=== PATIENT | female | born 1955 | race Caucasian/White ===

== ENCOUNTER 2024-11-28 09:54 | Outpatient (CLI) | payer MEDICARE, BC, SELFPAY ==
--- NOTE | 2024-11-28 10:15 | CRLHL7_ITS ---
For Patients: As a result of the Century Cures Act, medical imaging exams and procedure reports are released immediately into your electronic medical record. You may view this report before your referring provider. If you have questions, please contact your health care provider. ULTRASOUND-GUIDED LEFT BREAST BIOPSY AND POST-BIOPSY DIGITAL MAMMOGRAM FOR BIOPSY MARKER PLACEMENT CLINICAL HISTORY: Solid suspicious mass. COMPARISON STUDIES: 11/17/2024. TECHNIQUE: Real-time ultrasound with image documentation was used for targeting the breast lesion. Core biopsy specimens were obtained using an automated gun with a 16 gauge biopsy needle. Post-biopsy CC and ML digital mammograms were obtained to document position of the biopsy marker. CONSENT and TIME OUT: The procedure, risks, and alternatives were explained to the patient and a consent was signed. [place] Protocol was followed including pre-procedure verification that relevant information/documentation was available, reviewed and properly matched to the patient; consent accurate and complete; and equipment and supplies available. Time Out was conducted just prior to starting procedure to verify the four required elements: patient identity, correct side/site marked (if applicable), procedure, relevant images/results properly labeled and displayed (if applicable). PROCEDURE: The patient was positioned supine on the ultrasound table. The breast was prepped with ChloraPrep. 8 cc of 1 percent lidocaine used for local anesthesia. Core samples were obtained. A sterile metal biopsy clip was placed percutaneously to leticia the lesion position within the breast. The specimens were placed in 10% formalin and sent to the pathology department. Pressure was held on the biopsy site until all bleeding subsided. The skin incision was closed with Steri-Strips. An ice pack was positioned over the biopsy site. Post-biopsy instructions were reviewed with the patient, and a written copy was given to her. LATERALITY: LEFT breast. LESION: Solid lobular mass measuring 2.2 x 1.5 x 1.9 cm at 1 o`clock, 4 cm from the nipple. SUSPICION FOR MALIGNANCY: High. NUMBER OF SAMPLES: 5. BIOPSY CLIP SHAPE: HydroMARK. PROXIMITY OF CLIP TO TARGET: Within the lesion. IMPRESSION: Ultrasound-guided breast biopsy. When the pathology report is available, an addendum to this report will be made. ACR not applicable Dictated by Sawyer Power MD @ 11/28/2024 1:23:53 PM /sp SP/Dictated by: Sawyer Power MD @ 11/28/2024 1:23:00 PM (Electronically Signed)
--- NOTE | 2024-11-28 11:00 | CRLHL7_ITS ---
For Patients: As a result of the Century Cures Act, medical imaging exams and procedure reports are released immediately into your electronic medical record. You may view this report before your referring provider. If you have questions, please contact your health care provider. PLEASE SEE LEFT BREAST ULTRASOUND-GUIDED BIOPSY OF SAME DAY. CRL:sp SP/Dictated by: Sawyer Power MD @ 11/28/2024 1:23:00 PM (Electronically Signed)
== END 2024-11-28 09:55 | disposition home or self-care (01) ==
LOC: US 09:58
PROVIDERS: Visit Provider Internal Medicine
DX: N63.20 Unspecified lump in the left breast, unspecified quadrant (principal); C50.912 Malignant neoplasm of unspecified site of left female breast; R92.8 Other abnormal and inconclusive findings on diagnostic imaging of breast
CPT/HCPCS: 19083; 77065; 88305; 88341; 88342; 88360; 88361; A4648; A4649

== ENCOUNTER 2024-12-06 14:16 | Outpatient (CLI) | payer MEDICARE, BC, SELFPAY ==
--- NOTE | 2024-12-06 14:30 | CRLHL7_ITS ---
For Patients: As a result of the Century Cures Act, medical imaging exams and procedure reports are released immediately into your electronic medical record. You may view this report before your referring provider. If you have questions, please contact your health care provider. BILATERAL BREAST MRI WITHOUT AND WITH GADOLINIUM CLINICAL HISTORY: Recently diagnosed breast cancer after ultrasound-guided biopsy of a mass at 1 o`clock 4 cm from the nipple in the left breast. INDICATION FOR BREAST MRI: Staging of newly diagnosed breast cancer and screening of contralateral breast. Regional lymph nodes will also be assessed. COMPARISON STUDIES: Screening mammograms 11/13/2024 and 03/17/2017. Diagnostic left mammogram and ultrasound 11/17/2024 and images from ultrasound-guided left breast biopsy and post biopsy mammogram 11/28/2024. CONTRAST: 20 mL IV Dotarem. TECHNIQUE: The patient was positioned prone using a breast coil. Multiple imaging sequences were obtained using 1-1.5 mm thick slices with no gap. The image sequences include T2-weighted STIR in the axial plane, T1-weighted nonfat-saturated gradient echo in the axial plane, pre- and post-contrast T1-weighted FLASH 3D with fat suppression in the axial plane, and T1-weighted FLASH high resolution 3D with fat suppression in the sagittal plane. Image post-processing was performed on a [employer] workstation. Complex 3D rendering including maximum intensity projections (MIPS) and volumetric renderings were obtained to optimize visualization of the extent of pathology and relationship to the nipple, skin, and chest wall. This aids in determining feasibility of breast conservation surgery. Subtraction, multiplanar reconstruction, mean curve determination, and angiogenesis mapping were also performed. The study was technically adequate. FINDINGS: Amount of Fibroglandular Tissue: Scattered fibroglandular tissue. Breast Background Enhancement: Minimal. RIGHT Breast: A 0.3 cm round, circumscribed enhancing mass in the upper outer right breast 8 cm posterior to the nipple is stable mammographically and benign, most likely an intramammary lymph node. There is no suspicious mass or non mass enhancement. LEFT Breast: At 1 o`clock middle depth, 5 cm posterior to the nipple there is a 2.3 x 3 x 2.4 cm (cc x AP x transverse) heterogeneously enhancing oval mass with irregular margins demonstrating areas of fast initial and washout delayed phase enhancement kinetics. There is artifact within the mass from the clip marking the site of biopsy-proven malignancy. No other areas of abnormal enhancement. Lymph Nodes: A low left axillary lymph node appears to have a thickened cortex measuring 0.8 cm in thickness. There is a normal morphology left internal mammary lymph node measuring 3 mm. No abnormal morphology lymph nodes on the right. IMPRESSIONS AND RECOMMENDATIONS: 1. The biopsy-proven malignant mass at 1 o`clock in the left breast measures up to 3 cm on MRI. Continued surgical/oncologic management is recommended. 2. A low left axillary lymph node appears to have a thickened cortex. Recommend left axillary ultrasound and possible ultrasound-guided biopsy if the lymph node is abnormal on ultrasound. 3. There is a visible left internal mammary lymph node, which is normal in morphology. 4. No MRI evidence of malignancy in the right breast. BI-RADS Category 4: Suspicious. Dictated by Juliana Ford MD @ 12/07/2024 10:58:06 AM/shade JENNIFER/Dictated by: Juliana Ford MD @ 12/07/2024 2:36:00 PM (Electronically Signed)
== END 2024-12-06 14:17 | disposition home or self-care (01) ==
LOC: MRI 14:18
PROVIDERS: PCP Internal Medicine; Visit Provider Surgery
DX: C50.912 Malignant neoplasm of unspecified site of left female breast (principal); Z17.421 Hormone receptor negative with human epidermal growth factor receptor 2 negative status
CPT/HCPCS: 77049; C8908; C8937; A9575

== ENCOUNTER 2024-12-21 14:06 | Outpatient (CLI) | payer MEDICARE, BC, SELFPAY ==
--- NOTE | 2024-12-21 14:30 | CRLHL7_ITS ---
For Patients: As a result of the 21st Century Cures Act, medical imaging exams and procedure reports are released immediately into your electronic medical record. You may view this report before your referring provider. If you have questions, please contact your health care provider. CLINICAL INDICATION: Left-sided breast cancer. COMPARISON IMAGING STUDIES: No prior shoulder MRI. TECHNICAL: Non-contrast and contrast-enhanced MRI of the left shoulder. Axial, sagittal oblique and coronal oblique PD, T2, stir and pre and postcontrast T1 fat-sat images. 20 mL of Dotarem intravenous gadolinium was administered for the postcontrast portion of the study. FINDINGS: OSSEOUS STRUCTURES: No definite osseous metastatic disease involving the left shoulder region. There is an area of reactive marrow changes involving the supraglenoid tubercle region of the glenoid. No acute fracture. No avascular necrosis of the humeral head. GLENOHUMERAL JOINT: Effusion: No effusion. Humeral Head Articular Cartilage: Maintained. Glenoid Articular Cartilage: Maintained. Alignment: Maintained. Capsule: No capsular edema or abnormal capsular thickening. CORACOACROMIAL ARCH: Acromial Morphology: Type 1 or type 2 acromial morphology. There is lateral downward sloping of the acromion. No os acromiale. Subacromial spurring is present. Lateral acromial thickness is 8 mm. Acromiohumeral Interval: At its narrowest, the interval measures 6 mm. There is prominence of the coracoacromial ligament. Coracohumeral Interval: At its narrowest, the coracohumeral interval measures 11 mm. Coracoid index is 9 mm. ACROMIOCLAVICULAR JOINT REGION: Advanced AC joint degenerative arthrosis. Coracoclavicular ligament intact. BURSAE: Small amount of Subacromial-subdeltoid bursal fluid. ROTATOR CUFF TENDONS AND MUSCLES AND DELTOID: Supraspinatus and Infraspinatus: Tendinosis of the distal supraspinatus and anterior infraspinatus tendons. There is a small approximately 10 mm anterior/posterior by 3 mm medial/lateral extent high-grade supraspinatus tendon tear present 14 mm proximal to the footplate as seen on coronal oblique STIR image number 10 of series 4. This may reflect a small full-thickness tendon defect. There is an additional small area of intrasubstance partial-thickness tearing of the distal tendon at the footplate which is noted on coronal oblique STIR images 7 and 8 of series 4. This is less well seen on the sagittal oblique images. No supraspinatus or infraspinatus muscle atrophy. Teres Minor: No distal tendon tear or muscle atrophy. Subscapularis: No distal tendon tear or muscle atrophy. Deltoid: No muscle atrophy or edema. BICEPS TENDON, LONG HEAD: The long head of the biceps tendon is intact. No subluxation or dislocation of tendon from bicipital groove. GLENOID LABRUM: Intact. OTHER FINDINGS: There is no abnormality within the suprascapular or spinoglenoid notches nor within the quadrilateral space. No axillary adenopathy or mass. IMPRESSION: 1. No metastatic disease involving the left shoulder region. 2. Small 10 mm area of high-grade, potentially focal full-thickness tearing of the supraspinatus tendon proximal to the footplate. Additional small area of intrasubstance partial tearing of the tendon distally at the footplate. Underlying tendinosis. No muscle atrophy. 3. Lateral downward sloping of the acromion with subacromial spurring. 4. Subacromial-subdeltoid bursitis. 5. AC joint degenerative arthrosis. Dictated by Jr Payton MD @ 12/22/2024 11:38:15 AM (Electronically Signed)
== END 2024-12-21 14:07 | disposition home or self-care (01) ==
PROVIDERS: PCP Internal Medicine; Visit Provider Internal Medicine Hematology & Oncology
DX: C50.912 Malignant neoplasm of unspecified site of left female breast (principal); M75.102 Unspecified rotator cuff tear or rupture of left shoulder, not specified as traumatic; S46.812A Strain of other muscles, fascia and tendons at shoulder and upper arm level, left arm, initial encounter; M75.52 Bursitis of left shoulder; M19.012 Primary osteoarthritis, left shoulder
CPT/HCPCS: 73223; A9575

== ENCOUNTER 2024-12-22 12:35 | Outpatient (CLI) | payer MEDICARE, BC, SELFPAY ==
--- NOTE | 2024-12-22 13:00 | CRLHL7_ITS ---
For Patients: As a result of the Century Cures Act, medical imaging exams and procedure reports are released immediately into your electronic medical record. You may view this report before your referring provider. If you have questions, please contact your health care provider. Indication: Left breast cancer, question of abnormal left axillary lymph node Technique: Real-time grayscale and color Doppler ultrasound of the left axillary soft tissues performed. Comparison: MRI left shoulder 12/21/2024, ultrasound left axilla 12/13/2024, MRI breast 12/06/2024. Outside CT PET 1 week prior. Findings: There may be a lymph node present within the deep soft tissues of the left axilla immediately adjacent to the chest wall. This is quite difficult to appreciate on real-time imaging. A safe approach for biopsy is not possible. Impression: Unable to performed left axillary lymph node biopsy due to indistinctness of the lymph node on real-time imaging and deep position adjacent to the chest wall. Would recommend lymph node dissection at the time of surgery. Dictated by Sawyer Power MD @ 12/22/2024 3:36:22 PM (Electronically Signed)
== END 2024-12-22 12:36 | disposition home or self-care (01) ==
LOC: US 12:35
PROVIDERS: PCP Internal Medicine; Visit Provider Internal Medicine Hematology & Oncology
DX: R59.0 Localized enlarged lymph nodes (principal); C50.912 Malignant neoplasm of unspecified site of left female breast
CPT/HCPCS: 38505; 76882; 76942; A4648; A4649

== ENCOUNTER 2024-12-25 12:52 | Outpatient (CLI) | payer MEDICARE, BC, SELFPAY | END 2024-12-25 12:53 | disposition home or self-care (01) | LOC: RAD 12:54 | PROVIDERS: PCP Internal Medicine; Visit Provider Internal Medicine Hematology & Oncology | DX: Z79.899 Other long term (current) drug therapy (principal); Z51.81 Encounter for therapeutic drug level monitoring | CPT/HCPCS: 93306 ==

== ENCOUNTER 2024-12-26 06:08 | Day surgery (SDC) | payer MEDICARE, BC, SELFPAY ==
[2024-12-26] VITALS (7 sets, daily range): BP systolic 120–165; BP diastolic 63–90; PULSE 61–70; RESP 16–18; TEMP 36.3–36.6; O2SAT 96–98; BMI 31.4
[2024-12-26] MEDS: 0.9 % SODIUM CHLORIDE 500 ML 500 ML 100 ML IV (07:03)
[2024-12-26] MEDS: SODIUM CHLORIDE 0.9 % (FLUSH) 10 ML SYRINGE IVF (07:03)
[2024-12-26] MEDS: CEFAZOLIN 1 GM inj IVP (08:25)
--- NOTE | 2024-12-26 08:30 | CRLHL7_ITS ---
For Patients: As a result of the Century Cures Act, medical imaging exams and procedure reports are released immediately into your electronic medical record. You may view this report before your referring provider. If you have questions, please contact your health care provider. INDICATION: Intra procedural fluoroscopic guidance. COMPARISON: None. TECHNIQUE: A single spot image is submitted. FINDINGS: As discussed below: NB: No real-time collaboration between radiology and the circular shear operator. IMPRESSION: 1. Left-sided Port-A-Cath with the catheter tip overlying the lower superior vena cava. Total fluoroscopy time is 2 minutes and 6.3 seconds. Please refer to the procedure report. Dictated by Sriram Gutierrez MD @ 12/26/2024 10:44:17 AM (Electronically Signed)
[2024-12-26] MEDS: BUPIVACAINE 0.5% 30 ML INJECTION (08:43)
[2024-12-26] MEDS: HEPARIN 500 UNIT/5 ML SYRINGE IVF (08:43)
[2024-12-26] MEDS: 0.9 % SODIUM CHLORIDE 50 ml INJECTION (08:43)
[2024-12-26] MEDS: LIDOCAINE 1 % PF 30 ML INJECTION (09:16)
--- NOTE | 2024-12-26 09:18 | CRLHL7_ITS ---
For Patients: As a result of the Century Cures Act, medical imaging exams and procedure reports are released immediately into your electronic medical record. You may view this report before your referring provider. If you have questions, please contact your health care provider. INDICATION: Port-A-Cath placement COMPARISON: None TECHNIQUE: A single view study was obtained as a portable CXR, December 26, 2024 FINDINGS: As discussed below IMPRESSION: 1. Heart size normal. 2. Left-sided Port-A-Cath ending in the distal SVC. 3. Lungs are clear. There is no pleural effusion or pneumothorax. Dictated by Zander Palomo MD @ 12/26/2024 10:31:58 AM (Electronically Signed)
--- NOTE | 2024-12-26 09:20 | P.GSOP_ITS ---
Operative Note Date of procedure: 12/26/24 Pre-op diagnosis: Invasive ductal carcinoma, left breast Post-op diagnosis: Same Type of Procedure: Left internal jugular port a catheter placement Indications: Patient is a 69-year-old female with recent diagnosis breast cancer. She has been seen by Oncology who recommended chemotherapy and port a catheter placement. Risks and benefits of operative intervention were discussed at length with the patient. Risks included but was not limited to: Bleeding, infection, risk of damage to surrounding structures, possible need for additional procedures and postoperative complications such as pneumonia, pulmonary emboli or MO. All questions and concerns were addressed with the patient agreeing to proceed. Procedure Description: After discussing the risks and benefits of the procedure, the patient signed informed consent.? The operative site was marked and the patient was brought to the operating room and placed on the operating table in supine position.? Care was taken to pad the patient's pressure points.?? The patient was then given sed ation by anesthesia.?? The operative site was then prepped and draped in the usual sterile fashion.? A time-out was then performed. The patient's right internal jugular vein was visualized using ultrasound. Local anesthetic was injected into the neck skin above the vein. A small anabela in the skin was made with an 11 blade. The needle was advanced with ultrasound guidance and return of blood. Once the syringe was removed there was evidence of pulsatile flow, indicating access into the carotid. The needle was removed and pressure applied for a period of 5 minutes. Ultrasound to the area revealed no hematoma. The internal jugular vein was small, but compressible. The needle was again advanced under ultrasound guidance with evidence of excess into the vein. Removal of the syringe indicated venous blood return. The wire was advanced, it was able to be advanced past the needle but resistance was felt around 5 cm. The C-arm was brought into the field and under fluoroscopy an attempt was made to advance a wire. Resistance was felt at the same location, around 5 cm. The decision was made to then proceed to the left side. Pressure was applied at the accessed site for again a period of 5 minutes. The patient's left internal jugular vein was visualized using ultrasound. Local anesthetic was injected into the neck above the vein. A small anabela in the skin was made with an 11 blade. The vein was accessed percutaneously via Seldinger technique using ultrasound guidance. The C-arm was used to visualize the track of the wire into the heart. Next local anesthetic was injected into the skin below the clavicle and along the proposed tract to the neck incision. A skin incision was then made with a 15 blade and a pocket created in the chest wall with cautery. A tunneler was then used to thread the catheter from the chest wall pocket to the neck incision. Once this was done fluoroscopy was brought into the field. Over the wire the tract was dilated using fluoroscopy. The wire and the dilator were then removed leaving the sheath intact in the vein. Through this the catheter was threaded. Using fluoroscopy the catheter was positioned into the distal SVC. The catheter was noted to flush and aspirate easily. The catheter was then connected to the port. The port was placed in the pocket and secured in place with a single 2 0 Prolene stay suture on the medial side. It was noted to flush and aspirate easily. This was then locked with heparinized saline. The skin was closed with absorbable suture. Sterile dressings were applied. Instrument sponge and needle counts were correct at the end of the case. The patient was woken and taken to the PACU in stable condition. Findings: Attempt at right internal jugular vein placement, unable to advance wire past 5 cm. Successful placement of left internal jugular port a catheter. Anesthesia: MAC Surgeon: Nerissa Perdue MD Estimated blood loss (mL): 15 Condition: stable Disposition: PACU
--- NOTE | 2024-12-26 09:26 | W.PM.H&PU ---
History & Physical Update History & Physical Update H&P Reviewed and patient assessed: No changes noted
--- NOTE | 2024-12-26 09:34 | P.ANES_ITS ---
Anesthesia Charges Start Date/Time Anesthesia Start Date: 12/26/24 Anesthesia Start Time: 08:14 Stop Date/Time Anesthesia Stop Date: 12/26/24 Anesthesia Stop Time: 09:33 Summary Extremes of Age - Over 70 or under 1: OVEN DAUBER Coding CPT Codes CPT Codes: ANESTH VASCULAR ACCESS - 16624 ([id number]) P2 - PATIENT W/MILD SYST DISEASE, QK - HOUSEKEEPING DIRECTOR 2-4 CNCRNT ANES PROC, QX - OVEN DAUBER SVC W/ MD MED DIRECTION Additional Codes: Summary - Extremes of Age - Over 70 or under 1: OVEN DAUBER ([id number])
--- NOTE | 2024-12-26 09:34 | W.ANESCHARGE ---
Anesthesia Charges Start Date/Time Anesthesia Start Date: 12/26/24 Anesthesia Start Time: 08:14 Stop Date/Time Anesthesia Stop Date: 12/26/24 Anesthesia Stop Time: 09:33 Summary Extremes of Age - Over 70 or under 1: MERCERIZING RANGE FEEDER Coding CPT Codes CPT Codes: ANESTH VASCULAR ACCESS - 90336 ([id number]) P2 - PATIENT W/MILD SYST DISEASE, QK - COMPTOMETRIST 2-4 CNCRNT ANES PROC, QX - MERCERIZING RANGE FEEDER SVC W/ MD MED DIRECTION Additional Codes: Summary - Extremes of Age - Over 70 or under 1: MERCERIZING RANGE FEEDER ([id number])
--- NOTE | 2024-12-26 09:44 | SUR.PHASEII ---
Xray in room for portable post op imaging.
--- NOTE | 2024-12-26 10:47 | SUR.PHASEII ---
Per Dr. Perdue, patient cleared to eat and drink. Patient provided water, coffee, and crackers. Sitting at side of bed. Denies nausea, vomiting, and lightheadedness. Spouse at the bedside.
--- NOTE | 2024-12-26 10:51 | P.ANES_ITS ---
Anesthesia Charges Start Date/Time Anesthesia Start Date: 12/26/24 Anesthesia Start Time: 08:14 Stop Date/Time Anesthesia Stop Date: 12/26/24 Anesthesia Stop Time: 09:33 Summary Extremes of Age - Over 70 or under 1: MDA Coding CPT Codes CPT Codes: ANESTH VASCULAR ACCESS - 26245 ([id number]) QK - PEDIATRIC MEDICAL ASSISTANT 2-4 CNCRNT ANES PROC, QX - NEEDLE BOARD REPAIRER SVC W/ MD MED DIRECTION, P2 - PATIENT W/MILD SYST DISEASE Additional Codes: Summary - Extremes of Age - Over 70 or under 1: MDA ([id number])
[2024-12-26] MEDS: HYDROCODONE-ACETAMIN 5-325 MG 1 TAB PO (11:01)
== END 2024-12-26 11:10 | disposition home or self-care (01) ==
PROVIDERS: PCP Internal Medicine; Visit Provider Surgery
PROC: (CPT 36561; principal; 2024-12-26 08:00)
DX: Z45.2 Encounter for adjustment and management of vascular access device (principal); C50.912 Malignant neoplasm of unspecified site of left female breast
CPT/HCPCS: 36561; 00532; 71045; 76000; 76998; 99100; A9270; C1788; J0665; J0690; J1642; J2003; J2704; J3490; J7030

== ENCOUNTER 2025-01-10 08:14 | Outpatient (CLI) | payer MEDICARE, BC, SELFPAY | END 2025-01-10 08:15 | disposition home or self-care (01) | LOC: NFLDREF 01-17 03:10 | PROVIDERS: PCP Internal Medicine; Referring Provider Internal Medicine; Visit Provider Physician Assistant | DX: C50.611 Malignant neoplasm of axillary tail of right female breast (principal) | CPT/HCPCS: 80053; 85025 ==

== ENCOUNTER 2025-02-14 08:15 | Emergency (ER) | payer MEDICARE, BC, SELFPAY ==
--- OUTSIDE RECORDS SUMMARY | 2025-02-14 08:19 | XMS_ITS | Clinical Summary ---
Author Organization [facility] [employer] [facility] Address [address] [place] [id number] Care Team Providers Care Medical Instructor Name Role Phone Lissa Acotsa MD Primary Care Provider [phone] Allergies Active Allergy Reactions Criticality Noted Date Comments Pseudoephedrine-Ibuprofen Itching 09/19/2006 Medications Cholecalciferol, Vitamin D3, (VITAMIN D-3) 2,000 unit tablet Take 2,000 Units by mouth once daily. Active betamethasone, augmented dipropianate 0.05% (DIPROLENE AF) 0.05 % cream APPLY TO AFFECTED AREA ON BODY TWICE A DAY FOR 2 WEEKS , TAKE 2 WEEKS OFF THEN REPEAT NEEDED FOR FLARES 2 Active atorvastatin (LIPITOR) 40 mg tabletIndications:M ixed hyperlipidemia Take 1 Tablet (40 mg) by mouth at bedtime. 90 Tablet 3 4 Active FLUoxetine (PROZAC) 20 mg capsuleIndications: Recurrent major depressive disorder, in partial remission Take 3 Capsules (60 mg) by mouth once daily in the morning. 270 Capsule 1 5 Active magnesium hydroxide (MAGNESIA ORAL) Take by mouth. Active mecobalamin (B12 ACTIVE ORAL) Take by mouth. Active ondansetron 4 mg tablet Take 4 mg by mouth every 8 hours if needed for Nausea/Vomit ing. 5 Active prochlorperazine 5 mg tablet Take 10 mg by mouth every 6 hours if needed for Nausea/Vomit ing. 5 Active Active Problems Problem Noted Date Diagnosed Date DNR (do not resuscitate) 06/07/2023 Hx of colonic polyps 07/17/2015 Major depression, recurrent 05/12/2011 Mixed hyperlipidemia Resolved Problems Problem Noted Date Diagnosed Date Resolved Date Tobacco use disorder 02/09/2007 023 Encounters Date Type Department Care Team Description 12/26/2024 Orders Only [facility] Scanner 1 scan: (1-Ord) [facility], XR CHEST 1V PORTABLE, 12/26/2024 12/26/2024 Orders Only [facility] Scanner 1 scan: (1-Ord) [facility], XR CHEST 1V, 12/26/2024 12/25/2024 1:00 PM CDT Ancillary Procedure [facility] [address] [place] [address] 12/21/2024 Orders Only [facility] Scanner 1 scan: (1-Ord) [facility], SHOULDER LT WO/W CON, 12/21/2024 12/20/2024 2:35 PM CDT Office Visit [facility] [address] [place] [address] Lissa Acosta MD Pre-Op Exam (DOS: 12/26/2024) 12/20/2024 Orders Only [facility] [address] [place] [address] Lissa Acosta MD 1 scan: (1-Ord) 12/20/2024 12/20/2024 Travel 12/20/[address] [address] Lissa Acosta MD Appointment 12/19/2024 Orders Only [facility] [email or web address] [address] [place] [address] Rubina Orellana MD Procedure (Needs orders for port placement) 12/15/2024 7:52 AM CDT - 12/15/2024 11:59 PM CDT Hospital Encounter [facility] [place] [address] [place] [address] Rubina Orellana MD Malignant neoplasm of upper-outer quadrant of left breast in female, estrogen receptor negative (HC) 12/15/2024 Travel 12/13/2024 9:31 AM CDT - 12/13/2024 11:59 PM CDT Hospital Encounter [facility] [address] [place] [address] Rubina Orellana MD Malignant neoplasm of upper-outer quadrant of left breast in female, estrogen receptor negative (HC) 12/13/2024 Travel 12/07/2024 Telephone [facility] [address] [place] [address] Lissa Acosta MD Questions (PRE OP ) 12/05/2024 3:45 PM CDT Office Visit [facility] [[email or web address] [address] [place] [address] Rubina Orellana MD Consult (Left breast cancer) 12/05/2024 Travel 11/29/2024 Lab Requisition [facility] [phone] Unknown, Doctor 11/17/2024 3:15 PM CDT Ancillary Procedure [facility] [[email or web address]] [address] [place] [address] 11/17/2024 2:30 PM CDT Ancillary Procedure [facility] [[email or web address]] [address] [place] [address] 11/17/2024 Ancillary Orders [facility] [[email or web address] [address] [place] [address] Lissa Acosta MD 11/17/2024 Travel 11/14/2024 Telephone [facility] [[email or web address] [address] [place] [address] Tech, Mammo Results from Last 3 Months Immunizations Immunization Administration Dates Next Due Pneumococcal Poly,23-Valent (Pneumovax) 08/25/20 21 Pneumococcal conj 13-Valent (Prevnar 13) 019 Td (Age >=7 Years) 11/03/2002 Tdap 01/24/2013 Zoster (Shingrix-RZV, recombinant) 04/12/2018, Family History Medical History Relation Name Comments Dementia Brother 1 David Valvular heart disease Brother 2 Omar Valvular heart disease Brother 3 Koby Lung cancer Father Diabetes Mother Heart Disease Mother ASCVD Hypertension Mother COPD Sister 1 Olimpia Cancer-colon Sister 2 Marcy Cancer-breast No Family History Relation Name Status Comments Brother 1 David Brother 2 Omar Alive Brother 3 Koby Alive Brother 4 Alive Brother 5 Alive Brother 6 Alive Brother 7 Alive Brother 8 Alive Brother 9 Alive Father Alive Mother Sister 1 Olimpia Sister 2 Marcy Sister 3 Alive Sister 4 Alive Sister 5 Alive Social History Tobacco Use Types Packs/Day Years Used Date Smoking Tobacco: Former Cigarettes 1 35 Passive Smoke Exposure: Current Smokeless Tobacco: Never Tobacco Cessation:Counseling Given: Not Answered Comments:quit in 2005 Alcohol Use Standard Drinks/Week Comments No 0 (1 standard drink = 0.6 oz pur e alcohol) PHQ-2 Answer Date Recorded PHQ-2 TOTAL SCORE 2 11/09/2024 Social Connections Answer Date Recorded Frequency of Communication with Friends and Fami ly 0 05/22/2022 Financial Resource Strain Answer Date R ecorded Difficulty of Paying Living Expenses 3 05/22/2022 Difficulty of Paying Living Expenses Not on file 05/22/2022 Food Insecurity Answer Date Recorded Worried About Running Out of Food in the Last Ye ar 1 05/22/2022 Transportation Needs Answer Date Record ed Lack of Transportation (Medical) 1 05/22/2022 Housing Stability Answer Date Recorded Unable to Pay for Housing in the Last Year 1 05/22/2022 Comments No Sex and Gender Information Value Date Recorded Sex Assigned at Not on file Legal 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 [employer] Gender Identity Not on file Sexual Orientation Not on file Occupation Industry Job Start Date Job End Date Not on file Not on file Not on file Not on file Obstetrics History Last Filed Vital Signs Vital Sign Reading Time Taken Comments Blood Pressure 132/60 12/20/2024 3:31 PM CDT Pulse 76 12/20/2024 3:31 PM CDT Temperature 36.9 C (98.5 F) 06/13/2018 11:34 AM CDT Respiratory Rate 18 02/04/2022 1:46 PM CDT Oxygen Saturation 98% 12/05/2024 3:45 PM CDT Inhaled Oxygen Concentration - - Weight 88.4 kg (194 lb 14.4 oz) 12/20/2024 3:31 PM CDT Height 167.5 cm (5' 5.95) 12/20/2024 3:31 PM CD T Body Mass Index 31.51 12/20/2024 3:31 PM CDT Plan of Treatment Health Maintenance Due Date Last Done Comments RSV vaccine for adults or (1 - Risk 60-74 years 1-dose series) 2013 Tetanus booster 01/24/2023 01/24/2013, 11/03/2002 COVID-19 vaccine series ( season) 2024 08/06/2021, 12/04/2020, 11/06/2020 Influenza Vaccine (Season Ended) 2025 Colonoscopy through age 75 07/17/2025 07/17/2015, Medicare Wellness for age 65+ 11/10/2025 11/09/2024, 06/07/2023, 08/25/2021, Additional history exists Depression screening for age 12+ 11/13/2025 11/13/2024, 11/09/2024, 08/07/2024, Additional history exists Mammogram for age 45-75 11/17/2025 11/18/19, 11/13/2024, 03/17/2017, Additional history exists BMI (ht and wt on same day) for age 18+ 12/20/2025 12/20/2024, 11/09/2024, 08/07/2024, Additional history exists Lipids for age 45-75 08/07/2029 08/07/2024, 06/07/2023, 12/14/2022, Additional history exists Tdap Completed 01/24/2013 Zoster (shingles) series for age 50+ Completed 04/12/2018, 01/03/2018 Hepatitis C screening for age 18-79 Completed 05/15/2020 DEXA/DXA scan for age 65+ Completed 08/25/2021 Pneumococcal series for age 50+ Completed 08/25/2021, 01/18/2019 Hepatitis B series for 19+ Aged Out N o longer eligible based on patient's age to complete this topic Procedures Procedure Name Priority Date/Time Associated Diagnosis Comments SCAN-RADIOLOGY REPORT 12/26/2024 12:00 AM CDT SCAN-RADIOLOGY REPORT 12/26/2024 12:00 AM CDT ECHO TTE COMPLETE WO CONTRAST Routine 12/25/2024 1:45 PM CDT Other senior living (current) drug therapy SCAN-MRI INTERPRETATION 12/21/2024 12:00 AM CDT EKG 12 LEAD Routine 12/20/2024 12:00 AM CDT Malignant neoplasm of upper-outer quadrant of left breast in female, estrogen receptor negative (HC) PET CT SKULL BASE TO MID THIGH INITIAL TREAT Routine 12/15/2024 9:15 AM CDT Malignant neoplasm of upper-outer quadrant of left breast in female, estrogen receptor negative (HC) US AXILLA LEFT RODDY 12/13/2024 10:22 AM CDT Malignant neoplasm of upper-outer quadrant of left breast in female, estrogen receptor negative (HC) LAB TRACKING EVENT Routine 11/28/2024 10 :40 AM CDT PATH BREAST CORE BIOPSY Routine 11/28/2024 10:40 AM CDT US BREAST UNILATERAL LEFT LIMITED RODDY 11/17/2024 2:56 PM CDT Abnormal mammogram XR MAMMO BEBE UNI ADDL VIEWS LEFT RODDY 11/17/2024 2:41 PM CDT Abnormal mammogram LIPID PANEL W REFLEX MEASURED LDL Routine 08/07/2024 4:41 PM [employer]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 Anatomical Region Laterality Modality Other us Scanner OTHER Final Result * ECHO TTE COMPLETE WO CONTRAST (12/25/2024 1:45 PM CDT) AORTIC VALVE MEAN PG 7 mmHg EJECTION FRACTION 54 % PEAK TR VELOCITY 2.6 m/s LVEDD 4.5 cm EJECTION FRACTION 60 - 65% Anatomical Region Laterality Modality Ultrasound 12/25/2024 1:11 PM CDT Narrative 12/25/2024 2:21 PM CDT ECHOCARDIOGRAM NAILA CRESPO : 1955 69 years Study Date: 12/25/2024 1:11:41 PM Gender: F BP: 155/83 mmHg Height: 168.00 cm BSA: 1.98 m Weight: 88.00 kg Tech: DARREL Referring MD: SO BAUER Site: [facility] Reading Location: Mobile OP Patient Location: Outpatient. Procedure: 2D, Color Doppler and Spectral Doppler. Indication for study: Chemotherapy Cardiac Rhythm: Normal sinus.Study quality: Good. Final Impressions: 1. Normal LV size, normal wall thickness, normal global systolic function with an estimated EF of 60 - 65%. 2. Normal cardiac valves. Chamber Sizes and Function Normal left ventricular size, normal wall thickness, normal global systolic function with an estimated EF of 60 - 65%. No resting regional wall motion abnormality visualized. Left atrial size is normal. Left atrial pressure is normal. Right ventricular cavity size is normal, global systolic RV function is normal. RV wall thickness is normal. The right atrium is normal. Right atrial volume index is 16 ml/m . Right atrial area is 14 cm . The pulmonary artery is of normal size and origin. The sinus of Valsalva is normal sized. The ascending aorta is normal sized. Valves, RV Pressures and Diastolic Function The aortic valve is normal in structure and trileaflet, no stenosis and no regurgitation. The mitral valve is normal in structure, trace mitral regurgitation. Mild mitral annular calcification is present. Normal diastolic function. The tricuspid valve is normal in structure, mild tricuspid regurgitation. The tricuspid regurgitant velocity is 2.6 m/s, the estimated right ventricular systolic pressure is 28 mmHg plus right atrial pressure. There is normal estimated pulmonary pressure by tricuspid regurgitation velocity and right atrial pressure. The pulmonic valve is normal. No pulmonary regurgitation. Masses, Effusion, Shunts There is no pericardial effusion. The inferior vena cava is normal sized, respiratory size variation greater than 50%. No left to right shunting was detected by limited color flow Doppler interrogation of the interatrial septum. MEASUREMENTS AND CALCULATIONS 2-D Measurements and LV Function: LVID (d) 4.5 cm LV FS% (2D) 36 % LVID (s) 2.9 cm LVOT diameter 2.0 cm IVS (d) 0.9 cm HR 73 bpm LVPW (d) 1.0 cm LA Vol index 28 ml/m2 Ao Sinus 2.9 cm RA Vol index 16 ml/m2 Ao Sinus ULN 3.8 cm * RA area 14 cm Asc Ao 3.8 cm RV Basal Diam 2.4 cm Asc Ao ULN 4.0 cm * RV Mid Diam 3.8 cm * Input BSA outside of range, reported values correspond to BSA = 1.9 Diastology: Mitral Tissue Doppler Pulmonary veins E Peak 0.8 m/s e', Septum 0.09 m/s Pulm s 59.5 cm/s A Peak 1.0 m/s e', Lateral 0.11 m/s Pulm d 43.5 cm/s E/A 0.7 E/e' Average 7.61 Pulm s/d ratio 1.37 DT 189 msec Aortic Valve: Vmax 1.6 m/s ALLY (V) 2.56 cm VTI 0.37 m ALLY (I) 2.80 cm LVOT V max 1.4 m/s Max PG 11 mmHg LVOT VTI 0.33 m Mean PG 7 mmHg SV 104 ml Dim Index 0.90 SV index 52 ml/m CO 7.6 l/min CI 3.8 l/min/m Mitral Valve: MVA 4.0 cm MV P 1/2 55 msec MV Mean G 2 mmHg MV VTI 0.32 m Tricuspid Valve and estimated PA pressures: TR Vmax 2.6 m/s TAPSE 2.2 cm TR maxG 28 mmHg Pulmonic Valve: PV Vmax 1.0 m/s . This study was interpreted by an [facility] accredited facility. Final Procedure Note Sawyer Ochoa MD - 12/25/2024 ECHOCARDIOGRAM NAILA CRESPO : 1955 69 years Study Date: 12/25/2024 1:11:41 PM Gender: F BP: 155/83 mmHg Height: 168.00 cm BSA: 1.98 m Weight: 88.00 kg Tech: DARREL Referring MD: SO BAUER Site: [facility] Reading Location: Mobile OP Patient Location: Outpatient. Procedure: 2D, Color Doppler and Spectral Doppler. Indication for study: Chemotherapy Cardiac Rhythm: Normal sinus.Study quality: Good. Final Impressions: 1. Normal LV size, normal wall thickness, normal global systolic functionwith an estimated EF of 60 - 65%. 2. Normal cardiac valves. Chamber Sizes and Function Normal left ventricular size, normal wall thickness, normal globalsystolic function with an estimated EF of 60 - 65%. No resting regionalwall motion abnormality visualized. Left atrial size is normal. Leftatrial pressure is normal. Right ventricular cavity size is normal, globalsystolic RV function is normal. RV wall thickness is normal. The rightatrium is normal. Right atrial volume index is 16 ml/m . Right atrialarea is 14 cm . The pulmonary artery is of normal size and origin. Thesinus of Valsalva is normal sized. The ascending aorta is normal sized. Valves, RV Pressures and Diastolic Function The aortic valve is normal in structure and trileaflet, no stenosis and noregurgitation. The mitral valve is normal in structure, trace mitralregurgitation. Mild mitral annular calcification is present. Normaldiastolic function. The tricuspid valve is normal in structure, mildtricuspid regurgitation. The tricuspid regurgitant velocity is 2.6 m/s,the estimated right ventricular systolic pressure is 28 mmHg plus rightatrial pressure. There is normal estimated pulmonary pressure by tricuspidregurgitation velocity and right atrial pressure. The pulmonic valve isnormal. No pulmonary regurgitation. Masses, Effusion, Shunts There is no pericardial effusion. The inferior vena cava is normal sized,respiratory size variation greater than 50%. No left to right shunting wasdetected by limited color flow Doppler interrogation of the interatrialseptum. MEASUREMENTS AND CALCULATIONS 2-D Measurements and LV Function: LVID (d) 4.5 cm LV FS% (2D) 36% LVID (s) 2.9 cm LVOT diameter2.0 cm IVS (d) 0.9 cm HR 73bpm LVPW (d) 1.0 cm LA Vol index 28ml/m2 Ao Sinus 2.9 cm RA Vol index 16ml/m2 Ao Sinus ULN 3.8 cm * RA area 14cm Asc Ao 3.8 cm RV Basal Diam2.4 cm Asc Ao ULN 4.0 cm * RV Mid Diam3.8 cm * Input BSA outside of range, reported values correspond to BSA = 1.9 Diastology: Mitral Tissue Doppler Pulmonary veins E Peak 0.8 m/s e', Septum 0.09 m/s Pulm s 59.5 cm/s A Peak 1.0 m/s e', Lateral 0.11 m/s Pulm d 43.5 cm/s E/A 0.7 E/e' Average 7.61 Pulm s/d ratio 1.37 DT 189 msec Aortic Valve: Vmax 1.6 m/s ALLY (V) 2.56 cm VTI 0.37 m ALLY (I) 2.80 cm LVOT V max 1.4 m/s Max PG 11 mmHg LVOT VTI 0.33 m Mean PG 7 mmHg SV 104 ml Dim Index 0.90 SV index 52 ml/m CO 7.6 l/min CI 3.8 l/min/m Mitral Valve: MVA 4.0 cm MV P 1/2 55 msec MV Mean G 2 mmHg MV VTI 0.32 m Tricuspid Valve and estimated PA pressures: TR Vmax 2.6 m/s TAPSE 2.2 cm TR maxG 28 mmHg Pulmonic Valve: PV Vmax 1.0 m/s . This study was interpreted by an [facility] accredited facility. Final us So Bauer MD ECHO ORD Final Result * SCAN-MRI INTERPRETATION (12/21/2024 12:00 AM CDT) Anatomical Region Laterality Modality Other us Scanner OTHER Final Result * EKG 12 LEAD (12/20/2024 12:00 AM CDT) us Lissa Acosta MD EKG ORD Final Res ult * PET CT SKULL BASE TO MID THIGH INITIAL TREAT (12/15/2024 9:15 AM CDT) Anatomical Region Laterality Modality Positron Emissio n Tomography (PET) 12/15/2024 9:15 AM CDT Impressions 12/15/2024 9:38 PM CDT 1. Findings suspicious for biopsy-proven left breast invasive ductal carcinoma. 2. Focal FDG uptake in the region of the left glenohumeral joint. While favored to represent focal synovitis, the exact etiology remains indeterminate. Further evaluation with dedicated shoulder MRI with/without contrast is recommended. Narrative 12/15/2024 9:38 PM CDT For Patients: As a result of the Cures Act, medical imaging exams and procedure reports are released immediately into your electronic medical record. You may view this report before your referring provider. If you have questions, please contact your health care provider. EXAM: PET CT SKULL BASE TO MID THIGH INITIAL TREAT LOCATION: [facility] DATE: 12/15/2024 INDICATION: Initial treatment planning and staging for malignant neoplasm of upper quadrant of left female breast. COMPARISON: None available at time dictation TECHNIQUE: Serum glucose level 91 mg/dL. One hour post intravenous administration of FDG 10.67 mCi, PET imaging was performed from the skull base to mid thigh utilizing attenuation correction with concurrent axial CT and PET/CT image fusion. Dose reduction techniques were used. FINDINGS: FDG avid lesion in the upper outer left breast measuring 2.5 x 2.0 x 2.2 cm (Max SUV 16.4) suspicious for biopsy-proven invasive ductal carcinoma. Mild right shoulder synovitis. Reflux esophagitis. Focal FDG uptake in the region of the left glenohumeral joint (Max SUV 8.9 on series 202 image #71). Mild senescent intercranial changes. Mild coronary artery calcium. Mild to moderate emphysema. Hysterectomy. Pelvic phleboliths. Multilevel degenerative changes spine. Procedure Note Daniel Corbett MD - 12/15/2024 For Patients: As a result of the Century Cures Act, medical imagingexams and procedure reports are released immediately into your electronicmedical record. You may view this report before your referring provider.If you have questions, please contact your health care provider. EXAM: PET CT SKULL BASE TO MID THIGH INITIAL TREAT LOCATION: [facility] DATE: 12/15/2024 INDICATION: Initial treatment planning and staging for malignant neoplasmof upper quadrant of left female breast. COMPARISON: None available at time dictation TECHNIQUE: Serum glucose level 91 mg/dL. One hour post intravenousadministration of FDG 10.67 mCi, PET imaging was performed from the skullbase to mid thigh utilizing attenuation correction with concurrent axialCT and PET/CT image fusion. Dose reduction techniques were used. FINDINGS: FDG avid lesion in the upper outer left breast measuring 2.5 x2.0 x 2.2 cm (Max SUV 16.4) suspicious for biopsy-proven invasive ductalcarcinoma. Mild right shoulder synovitis. Reflux esophagitis. Focal FDG uptake in theregion of the left glenohumeral joint (Max SUV 8.9 on series 202 image#71). Mild senescent intercranial changes. Mild coronary artery calcium. Mild tomoderate emphysema. Hysterectomy. Pelvic phleboliths. Multileveldegenerative changes spine. IMPRESSION: 1. Findings suspicious for biopsy-proven left breast invasive ductalcarcinoma. 2. Focal FDG uptake in the region of the left glenohumeral joint. Whilefavored to represent focal synovitis, the exact etiology remainsindeterminate. Further evaluation with dedicated shoulder MRI with/withoutcontrast is recommended. Rubina Orellana MD PET Final Re sult * US AXILLA LEFT (12/13/2024 10:22 AM CDT) Anatomical Region Laterality Modality N/A Ultrasound, Othe r 12/13/2024 10:3 1 AM CDT Impressions 12/13/2024 10:31 AM CDT Single left axillary lymph node noted on the MRI scan is identified by ultrasound and appears to be morphologically normal. Since the patient is going they have a PET scan on Wednesday it seems prudent to wait for those results. If this metabolically active we certainly could then proceed with an ultrasound-guided biopsy. BI-RADS category 0: Need additional imaging. Dictated by Liliane Natarajan MD @ 12/13/2024 10:31:02 AM (Electronically Signed) Narrative 12/13/2024 10:31 AM CDT For Patients: As a result of the Cures Act, medical imaging exams and procedure reports are released immediately into your electronic medical record. You may view this report before your referring provider. If you have questions, please contact your health care provider. INDICATION: Biopsy proven malignancy in the left breast. Questionable axillary lymph node on recent MRI scan. TECHNIQUE: Ultrasound left axilla. FINDINGS: Deep in the inferior left axilla there is a focal lymph node which measures 1.2 x 1.2 x 1.4 cm has a homogeneous echogenic hilum and a cortex measuring 5 mm in thickness. This lies very near the chest wall. No other ultrasound abnormality noted. Procedure Note Mendoza Natarajan MD - 12/13/2024 For Patients: As a result of the Cures Act, medical imagingexams and procedure reports are released immediately into your electronicmedical record. You may view this report before your referring provider.If you have questions, please contact your health care provider. INDICATION: Biopsy proven malignancy in the left breast. Questionable axillary lymphnode on recent MRI scan. TECHNIQUE: Ultrasound left axilla. FINDINGS: Deep in the inferior left axilla there is a focal lymph node whichmeasures 1.2 x 1.2 x 1.4 cm has a homogeneous echogenic hilum and a cortexmeasuring 5 mm in thickness. This lies very near the chest wall. No otherultrasound abnormality noted. IMPRESSION: Single left axillary lymph node noted on the MRI scan is identified byultrasound and appears to be morphologically normal. Since the patient isgoing they have a PET scan on Wednesday it seems prudent to wait for thoseresults. If this metabolically active we certainly could then proceed withan ultrasound-guided biopsy. BI-RADS category 0: Need additional imaging. Dictated by Liliane Natarajan MD @ 12/13/2024 10:31:02 AM (Electronically Signed) us Rubina Orellana MD US Edited R esult - Final * LAB TRACKING EVENT (11/28/2024 10:40 AM CDT) Other (Other) Client Collect / Unknown 11/28/2024 10:40 AM CDT 11/29/2024 6:15 AM CDT us Doctor Unknown LAB BILL ONLY Final Result [facility] [address] [place] [address], [place] * PATH BREAST CORE BIOPSY (11/28/2024 10:40 AM CDT) Case Report Pathology Report Case: [id number] Authorizing Provider: Unknown, Doctor Collected: 11/28/2024 1040 Ordering Location: [facility] Received: 11/29/2024 1337 Pathologist: Robin King MD Specimen: Left Breast Core Ultrasound Biopsy 5:18 PM CDT [facility] Amendment 12/01/2024 - Amendment issued to incorporate ancillary studies. 5:18 PM CDT [facility] Final Diagnosis A) LEFT BREAST, 1:00, 4 CM FROM NIPPLE, ULTRASOUND-GUIDED CORE BIOPSY: 1. Invasive ductal carcinoma a. Pendergrass grade: III of III; Leighton score: 9 of 9 b. Angio-lymphatic invasion: Absent c. Associated DCIS: Absent 2. Breast Ancillary Testing: a. Hormone Receptors: Estrogen receptor: Negative (see comment) Progesterone receptor: Negative b. HER2 by IHC: Negative (1+ by manual morphometry) c. Ki-67: 52% 5:18 PM CDT [facility] Amendment electronically signed by Mainor Ferrera MD on 12/01/2024 at 1718 CDT at 1507 CDT Comment A) This is an image-guided breast biopsy. The pathologic findings should be correlated with radiologic and clinical findings prior to treatment decisions. Case seen in consultation with Dr. Ferrera. Estrogen Receptor Comment No internal controls are present, but external controls are appropriately positive. If needed, testing another specimen that contains internal controls may be warranted for confirmation of ER status. 5:18 PM CDT [facility] Clinical Information A) left breast mass Solid, lobulated/spiculated hypoechoic mass (2.2 x 1.5 x 1.9 cm) at 1:00, 4 cm from nipple. 5:18 PM CDT [facility] Gross Description A) Label: Patient's name and left breast Description: 5 Fibrofatty core biopsies Size: 1.6-1.8 cm in length by 0.2 cm in diameter Ink color: Black The specimen is submitted in toto in one cassette. Cold ischemic time: Less than 60 minutes, meets current ASCO/CAP guidelines. The specimen was fixed in formalin for a minimum of 6 hours and not longer than 72 hours. [facility] 11/29/2024 5:18 PM CDT [facility] Microscopic Description The final diagnosis is based on microscopic examination of appropriate sections of all specimens. A) The presence of black ink is confirmed on tissue sections. Immunohistochemistry performed on block A1 demonstrates that the tumor cells are: Cytokeratin AE1/AE3: positive GATA3: weakly to moderately positive in portion of tumor cells SOX10: positive P63: does not demonstrate definitive preservation of myoepithelial cells around tumor, arguing against an in situ component SMMS: does not demonstrate definitive preservation of myoepithelial cells around tumor, arguing against an in situ component 5:18 PM CDT [facility] SYNOPTIC REPORTING Breast Biomarker Reporting Template BREAST BIOMARKER REPORTING TEMPLATE - A Protocol posted: 08/11/2023 Test(s) Performed: Estrogen Receptor (ER) Status: Negative (less than 1%) : Internal control cells absent Test Type: Laboratory-developed test Primary Antibody: SP1 Test(s) Performed: Progesterone Receptor (PgR) Status: Negative (less than 1%) : Internal control cells absent Test Type: Laboratory-developed test Primary Antibody: 16 Test(s) Performed: HER2 by Immunohistochemistry: Negative (Score 1+) Test Type: Laboratory-developed test Primary Antibody: 4B5 Test(s) Performed: Ki-67 Ki-67 Percentage of Positive Nuclei: 52 % Primary Antibody: MIB1 Cold Ischemia and Fixation Times: Meet requirements specified in latest version of the ASCO / CAP Guidelines Testing Performed on Block Number(s): A1 METHODS Fixative: Formalin Image Analysis: Performed Method: Aperio morphometric analysis Biomarkers Scored by Image Analysis: ER Biomarkers Scored by Image Analysis: PgR Biomarkers Scored by Image Analysis: Ki-67 Comment(s): Ki67 52% out of 2,540 nuclei analyzed. HER2 immunohistochemistry (score) was evaluated by manual morphometry 5:18 PM CDT [facility] Additional Information Patients with breast cancers that are HER2 IHC 3+ or IHC 2+/ALEX amplified may be eligible for several therapies that disrupt HER2 signaling pathways. Invasive breast cancers that test 'HER2-negative' (IHC 0, 1+ or 2+/ALEX not-amplified) are more specifically considered 'HER2-negative for protein overexpression/gene amplification' since non-overexpressed levels of the HER2 protein may be present in these cases. Patients with breast cancers that are HER2 IHC 0 - UltraLow, HER2 IHC 1+ or IHC 2+/ALEX not amplified may be eligible for a treatment that targets non-amplified/non-over expressed levels of HER2 expression for cytotoxic drug delivery (IHC 0 - Null results do not result in eligibility currently). Interpreted at [facility] - [address] [place] [address] S. [facility] [address], [place] [address] Immunohistochemistry controls were reviewed and approved as appropriate by the pathologist during this examination. 5:18 PM CDT [facility] Other (Left Breast Core Ultrasound Biopsy) 11/28/2024 10:40 AM CDT 11/29/2024 1:37 PM CDT us Doctor Unknown PATHOLOGY/CYTOLOGY Edited Result - Final [facility] [address] [place] [address], [place] * US BREAST UNILATERAL LEFT LIMITED (11/17/2024 2:56 PM CDT) Anatomical Region Laterality Modality BREASTS, Breast Left, Breast Right Left Ultrasound Narrative 11/17/2024 4:39 PM CDT As a result of the Cures Act, medical imaging exams and procedure reports are released immediately into your electronic medical record. You may view this report before your referring provider. If you have questions, please contact your health care provider. LEFT BREAST ULTRASOUND 11/17/2024 PLEASE SEE [id number] FOR LEFT DIGITAL ADDITIONAL VIEWS MAMMOGRAM OF SAME DAY. us Lissa Acosta MD US Final Res ult * XR MAMMO BEBE UNI ADDL VIEWS LEFT (11/17/2024 2:41 PM CDT) Anatomical Region Laterality Modality BREASTS, Breast Left Mammography 11/17/2024 3:49 PM CDT Impressions 11/17/2024 4:39 PM CDT Suspicious mass LEFT breast 1 o'clock 4 cm from the nipple measuring 2.2 cm. RECOMMENDATIONS: Ultrasound-guided core needle biopsy. BI-RADS Category 5. Highly suggestive of malignancy. Dictated by: Sawyer Power MD @11/17/2024 3:49:38 PM/[facility] PATIENTS: You will also receive a letter with your examination results in an easy to read format. If you have questions about your results, please contact your referring provider. Narrative 11/17/2024 4:39 PM CDT As a result of the Century Cures Act, medical imaging exams and procedure reports are released immediately into your electronic medical record. You may view this report before your referring provider. If you have questions, please contact your health care provider. LEFT BREAST MAMMOGRAM DIGITAL ADDITIONAL VIEWS WITH TOMOSYNTHESIS 11/17/2024 LEFT BREAST ULTRASOUND 11/17/2024 CLINICAL HISTORY: LEFT breast mass/asymmetry. COMPARISON: 11/13/2024, 03/17/2017. TECHNIQUE: Digital LEFT mammogram in 2 projections. Tomosynthesis was used in this interpretation. Real-time ultrasound imaging of LEFT breast with imaging documentation. BREAST COMPOSITION: There are scattered areas of fibroglandular density. FINDINGS: 3D spot compression CC/MLO LEFT breast mammogram images submitted. Persistent lobular mass is present within the upper-outer quadrant. No suspicious calcifications. Targeted LEFT breast ultrasound performed at 1 o'clock 4 cm from the nipple. Lobular circumscribed hypoechoic mass is present which measures 2.2 x 1.5 x 1.9 cm. No axillary adenopathy. us Lissa Acosta MD MAMMO Final Res ult * (ABNORMAL) LIPID PANEL W REFLEX MEASURED LDL (08/07/2024 4:41 PM [employer]) CHOLESTEROL, TOTAL 122 <200 mg/dL [facility] HDL CHOLESTEROL 43(L) > OR = 50 mg/dL [facility] TRIGLYCERIDES 115 <150 mg/dL [facility] LDL-CHOLESTEROL 59 mg/dL (calc) [facility] Comment: Reference range: <100 Desirable range <100 mg/dL for primary prevention; <70 mg/dL for patients with CHD or diabetic patients with > or = 2 CHD risk factors. LDL-C is now calculated using the John calculation, which is a validated novel method providing better accuracy than the Friedewald equation in the estimation of LDL-C. Jefferson SS et al. ZI. 2013;310(19): 5046-0104 (http://education.[employer]/faq/FPI761) CHOL/HDLC RATIO 2.8 <5.0 (calc) [facility] NON HDL CHOLESTEROL 79 <130 mg/dL (calc) [facility] Comment: For patients with diabetes plus 1 major ASCVD risk factor, treating to a non-HDL-C goal of <100 mg/dL (LDL-C of <70 mg/dL) is considered a therapeutic option. Blood BLOOD SPECIMEN / Unknown 08/07/2024 4:41 PM [employer] 08/07/2024 4:42 PM [employer] Narrative [email or web address] - 08/08/2024 4:09 AM [employer]NAGER [employer] FASTING:UNKNOWN FASTING: UNKNOWN Lissa Acosta MD CHEMISTRY Final Res ult [facility] [address] [place] [address], [facility] [address] [place] [address] * (ABNORMAL) XR DXA BONE DENSITY 2 SITES AXIAL [99653.1] (08/25/2021 3:44 PM [employer]) Anatomical Region Laterality Modality Spine, HIPS, HIPL, HIPR Computed Radiography Impressions 09/02/2021 3:39 PM [employer] Osteopenia. Lowest T score -2.0. Fracture risk is not elevated. RECOMMENDATIONS: The National Osteoporosis Foundation recommends pharmacologic treatment for patients with T-scores of -2.5 or less, patients with prior history of fragility fractures, or patients with 10-year probability of greater than 3% at hips or greater than 20% of suffering major osteoporotic fractures. Recommend continued optimization of calcium and vitamin D intake through dietary means and/or supplementation and regular exercise. Repeat scan recommended in 5-7 years. Narrative 09/02/2021 3:39 PM [employer] For Patients: Results are automatically released to your [email or web address] ([email or web address]) account once available, in compliance with federal regulations. This means that you may see your results before your provider has had a chance to review them. Please allow 2-3 business days for your provider to comment on the results. XR DXA Bone Mineral Density (BMD) EXAM LOCATION: [facility] [address] [address] PATIENT NAME: Naila Crespo DATE OF : 1955 EXAM DATE: 08/25/2021 REQUESTING PROVIDER: Lissa Acosta MD GENDER AT : female HEIGHT: 5' 6 (08/25/2021) WEIGHT: 189 lb 14.4 oz (08/25/2021) MENOPAUSAL STATUS: Postmenopausal RACE/ETHNICITY: White RISK FACTORS: Smoking (prior) and White Race CURRENT MEDICATION FOR BONE LOSS: NONE INDICATION: Postmenopausal COMPARISON DATE(S): None DXA scans are compared to prior studies for a patient only when the two (or more) studies were performed on the same scanner. It is not possible to compare data generated on one scanner to data from another because there are not standards in DXA equipment. This applies even if the two scanners are made by the same machine rebuilder. PROCEDURE: Dual-energy x-ray absorptiometry performed with routine technique. Reporting is completed in the form of a T-score. The T-score represents the standard deviation from peak bone mass based on young healthy adult. A Z-score is used for diagnosis in premenopausal women, and for men under the age of 50. FINDINGS: RESULT LUMBAR SPINE L1 - L4 BMD: 0.965 g/cm2 T-Score: - 1.8 RESULTS FEMUR Left femoral neck BMD: 0.794 g/cm2 T-Score: - 1.8 Right femoral neck BMD: 0.762 g/cm2 T-Score: - 2.0 Left hip BMD: 0.968 g/cm2 T-Score: - 0.3 Right hip BMD: 0.905 g/cm2 T-Score: - 0.8 WHO criteria: Normal: T-score at or above -1 SD Osteopenia: T-score between -1.1 and -2.4 SD Osteoporosis: T-score at or below -2.5 SD FRAX RISK CALCULATION (USED FOR OSTEOPENIA ONLY): 10-year probability of major osteoporotic fracture: 11.1%. 10-year probability of hip fracture: 1.9%. Lissa Acosta MD DEXA Final Res ult * ANTI HCV (05/15/2020 2:29 PM CDT) Pathologist [facility] HEPATITIS C ANTIBODY Non-React abena Non-React abena 05/15/2020 9:04 PM CDT [facility] Comment:Antibodies to HCV no t detected; does not exclude the possibility of exposure to HCV. Blood BLOOD SPECIMEN / Unknown Butterfly / Unknown 05/15/2020 2:29 PM CDT 05/15/2020 2:29 PM CDT Tommie Fitzpatrick MD SEND OUTS Final R esult [facility] 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
[2025-02-14 08:22] VITALS: BP 151/82; PULSE 87; RESP 16; TEMP 36.1; O2SAT 97; BMI 31.0
--- NOTE | 2025-02-14 08:28 | CRLHL7_ITS ---
For Patients: As a result of the Century Cures Act, medical imaging exams and procedure reports are released immediately into your electronic medical record. You may view this report before your referring provider. If you have questions, please contact your health care provider. Indication: Constipation, abdominal pain Technique: Abdomen 2 view. Comparison: None. Findings: Moderate stool throughout the colon noted along with numerous radiopaque densities throughout the bowel likely representing pill fragments. No dilated small bowel loops. No pleural effusion. No free air. Impression: Constipation. No mechanical obstruction. Delayed colonic transit. Dictated by Sawyer Power MD @ 02/14/2025 9:43:23 AM (Electronically Signed)
--- NOTE | 2025-02-14 08:34 | ED.GENADULT ---
HPI - General Adult General Chief complaint: Constipation Stated complaint: constipated, vomit and shaky Time Seen by Provider: 02/14/25 08:19 Source: patient Mode of arrival: ambulatory Limitations: no limitations History of Present Illness HPI narrative: 69-year-old female presenting today with constipation. Patient states that she does not know when her last bowel movement was but estimates that it has been anywhere between 4 and 6 days. In the last couple days she has developed some abdominal discomfort. She states that she is passing gas, but much less than usual. She denies dysuria, increased frequency urgency. She denies fevers or chills. She states that this morning she was trying to have a bowel movement and was sitting on the toilet when she became hot and vomited. Shortly after that she vomited again. She denies any blood or dark coloration of her vomit. She denies chest pain, shortness of breath or palpitations. Denies feeling lightheaded, denies presyncope. Patient is currently undergoing treatment for breast cancer, diagnosis made earlier this year. Treatment started in December. Related Data Home Medications ?Medication ?Instructions ?Recorded ?Confirmed acetaminophen 500 mg tablet 1,000 mg PO Q6H PRN 12/19/24 01/25/25 (Tylenol Extra Strength) atorvastatin 40 mg tablet 40 mg PO DAILY 12/19/24 01/25/25 betamethasone dipropionate 0.05 % 1 applic topical QDAY PRN 12/19/24 01/25/25 topical cream cholecalciferol (vitamin D3) 50 50 mcg PO QDAY 12/19/24 01/25/25 mcg (2,000 unit) capsule fluoxetine 20 mg capsule 60 mg PO QAM 12/19/24 01/25/25 ibuprofen 200 mg tablet (Advil) 400 mg PO Q8H PRN 01/01/25 01/25/25 magnesium 250 mg tablet 250 mg PO QDAY 01/25/25 01/25/25 vitamins B1 B6 B12 tablet tab PO .qd 01/25/25 01/25/25 Previous Rx's ?Medication ?Instructions ?Recorded lidocaine-prilocaine 2.5 %-2.5 % 2.5 applic topical DIRECTED PRN 01/10/25 topical cream port access #30 grams ondansetron HCl 4 mg tablet 4 mg PO Q8H PRN nausea and 01/30/25 vomiting #60 tabs prochlorperazine maleate 5 mg 5 mg PO TID PRN nausea and 01/30/25 tablet (Compazine) vomiting #60 tabs Allergies Allergy/AdvReac Type Severity Reaction Status Date / Time pseudoephedrine Allergy Verified 02/01/25 09:16 Review of Systems Status of ROS: Reports: 10 or more systems reviewed and unremarkable except as noted in History and below [facility] Social History Smoking Status: Former smoker Do you use any of these nicotine containing products: None How often do you have a drink containing alcohol: never AUDIT-C Alcohol total score: 0 Non-prescribed substance use: denies use Caffeine: Yes (6 cups/day) Are you using contraception or practicing any form of control: No Exam Narrative: Exam Narrative: Well-nourished well-developed patient in no acute distress. Alert and oriented. Answers questions appropriately. Mood and affect are appropriate. Thoughts are goal oriented and rational. No tangential or magical thinking noted. Patient speaks in full sentences without needing to catch her breath. Patient does not appear ill or toxic. She is in good spirits. HEENT: Normocephalic atraumatic. Pupils are equally round reactive to light. Extraocular muscles are intact. Conjunctivae are moist without any icterus noted. Moist mucous membranes. Cardiovascular: Heart is regular rate and rhythm. Lungs: Clear to auscultation bilaterally. Abdomen: Soft and nondistended with normal bowel sounds. Minimal diffuse discomfort. Skin: Well perfused. Const: Vital Signs, click to edit/add: Vital Signs - 24 hr 02/14/25 08:22 02/14/25 11:07 Temperature 96.9 F L Pulse Rate [Pulse Oximeter] 87 80 Respiratory Rate 16 16 Blood Pressure [Ri ght Upper Arm] 151/82 H 131/74 Pulse Oximetry 97 96 Oxygen Delivery Me thod Room Air Room Air Course Course ED Course: Blood work is unremarkable. Patient does have anemia which has been stable since December. Abdominal x-ray, read by me, does not show any evidence of acute obstruction, moderate stool burden. [place] lady enema was administered. Patient past 3 golf ball size chunks of stool. Still felt that she really had to go. While she was sitting on the commode she vomited again. We gave her some time to recover. Discussed plans and patient wished to repeat the enema at this time. So therefore a Fleet's enema was done and she passed another golf ball size piece of stool with some runny liquid stool. At this time, patient felt like she could go home and continue working a this from the top down. She has no more episodes of vomiting, was generally feeling some mild relief. Blood work showed low WBC of 2.6 and hemoglobin 10.7-both around her baseline. Chemistries are unremarkable. LFTs unremarkable. Vital Signs Vital signs: Initial Vital Signs Temperature 96.9 F L 02/14/25 08:22 Temperature Source Temporal Artery Scan 02/14/25 08:22 Pulse Rate 87 02/14/25 08:22 Respiratory Rate 16 02/14/25 08:22 Blood Pressure 151/82 H 02/14/25 08:22 Blood Pressure Mean 105 02/14/25 08:22 Blood Pressure Position Sitting 02/14/25 08:22 Pulse Oximetry 97 02/14/25 08:22 Oxygen Delivery Method Room Air 02/14/25 08:22 Vital Signs Temperature 96.9 F L 02/14/25 08:22 Pulse Rate 87 02/14/25 08:22 Respiratory Rate 16 02/14/25 08:22 Blood Pressure 151/82 H 02/14/25 08:22 Pulse Oximetry 97 02/14/25 08:22 Oxygen Delivery Method Room Air 02/14/25 08:22 Temperature 96.9 F L 02/14/25 08:22 Pulse Rate 80 02/14/25 11:07 Respiratory Rate 16 02/14/25 11:07 Blood Pressure 131/74 02/14/25 11:07 Pulse Oximetry 96 02/14/25 11:07 Oxygen Delivery Method Room Air 02/14/25 11:07 Medications Administered Medications: Discontinued Medications Generic Name Dose Route Start Last Admin Trade Name Freq PRN Reason Stop Dose Admin Miscellaneous Medication 376 ml 02/14/25 10:00 02/14/25 10:26 Doc/Min Oil/Mag Cit/Sod Phos 376 Ml Enema TX 02/14/25 10:01 376 ml ONCE ONE Administration Medical Decision Making MDM Narrative Medical decision making narrative: 69-year-old female with constipation- we discussed constipation regimen and reasons for follow-up. Lab Data Lab results reviewed: Yes I reviewed the patient's lab results Labs: Lab Results 02/14/25 Range/Units 08:45 WBC 2.67 L (4.50-11.00) K/uL RBC 3.64 L (4.00-5.20) m/uL Hgb 10.7 L (12.0-16.0) gm/dL Hct 32.2 L (33.0-51.0) % MCV 89 (80-100) fL MCH 29 (26-34) pg MCHC 33 (32-36) gm/dL RDW Coeff of [place] 14.0 (11.5-15.5) % Plt Count 162 (140-440) K/uL Neut % (Auto) 64.5 (42.0-72.0) % Lymph % (Auto) 28.8 (20-44) % [place] % (Auto) 5.2 (0.0-11.0) % Eos % (Auto) 0.4 (0.0-7.0) % Baso % (Auto) 0.4 (0.0-3.0) % Neut # (Auto) 1.70 (1.7-7.0) K/uL Lymph # (Auto) 0.80 L (0.90-2.90) K/uL [place] # (Auto) 0.10 (0.00-0.90) K/UL Eos # (Auto) 0.00 (0.00-0.50) K/uL Baso # (Auto) 0.00 (0.00-0.30) K/uL Abs Immat Gran (auto) 0.00 (0.00-0.30) K/uL Imm/Tot Granulo (auto) 0.7 % Sodium 135 (135-149) mmol/L Potassium 4.0 (3.6-5.1) mmol/L Chloride 101 (96-114) mmol/L Carbon Dioxide 26 (20-32) mmol/L Anion Gap 8 (7-15) mEq/L BUN 16 (7-30) mg/dL Creatinine 0.9 (0.5-1.5) mg/dL Estimated Creat Clear 48.30 Estimated GFR 68 ml/min Glucose 108 (60-115) mg/dL Calcium 9.0 (8.4-10.6) mg/dL Total Bilirubin 0.7 (0.1-1.5) mg/dL Direct Bilirubin 0.1 (0.0-0.5) mg/dL AST 26 (12-35) U/L ALT 26 (4-35) U/L Alkaline Phosphatase 65 (40-150) U/L Total Protein 7.0 (6.0-8.3) g/dL Albumin 4.1 (3.3-5.0) g/dL Imaging Data Abdominal x-ray: Attestation: I have reviewed the pertinent imaging results. Radiologist's impression: Technique: Abdomen 2 view. Comparison: None. Findings: Moderate stool throughout the colon noted along with numerous radiopaque densities throughout the bowel likely representing pill fragments. No dilated small bowel loops. No pleural effusion. No free air. Impression: Constipation. No mechanical obstruction. Delayed colonic transit. Discharge Plan Discharge Clinical Impression: Constipation Patient Disposition: Home, Self-Care Condition: Stable Additional Instructions: Recommend constipation regimen until you have regular bowel movements. Start with MiraLax 2 cap fulls 2 times per day- mix each capful with 8 oz of water. Slowly decrease this does until you are taking just 1 capful once per day. Continue this for 4 weeks. The goal is to have a regular bowel movement once daily or every other day. Also start taking a daily senna tablet 1 time per day at bedtime. Follow-up with your primary care provider early next week. Return to the emergency department if you develop abdominal pain, inability to pass gas or vomiting and the inability to keep down your medications. Both MiraLax and senna can be purchased [id number]. Prescriptions: No Action fluoxetine 20 mg capsule 60 mg PO QAM atorvastatin 40 mg tablet 40 mg PO DAILY cholecalciferol (vitamin D3) 50 mcg (2,000 unit) capsule 50 mcg PO QDAY betamethasone dipropionate 0.05 % cream 1 applic topical QDAY PRN acetaminophen [Tylenol Extra Strength] 500 mg tablet 1,000 mg PO Q6H PRN ibuprofen [Advil] 200 mg tablet 400 mg PO Q8H PRN vitamins B1 B6 B12 Tablet PO .qd magnesium 250 mg tablet 250 mg PO QDAY lidocaine-prilocaine 2.5-2.5 % cream 2.5 applic topical DIRECTED PRN (Reason: port access) Qty: 30 0RF Rx Instructions: Apply topically as directed ondansetron HCl 4 mg tablet 4 mg PO Q8H PRN (Reason: nausea and vomiting) Qty: 60 0RF prochlorperazine maleate [Compazine] 5 mg tablet 5 mg PO TID PRN (Reason: nausea and vomiting) Qty: 60 0RF Follow Up/Referrals: Lissa Acosta MD [Primary Care Provider, Internal Medicine] Stand Al[facility]: [facility] Info Instructions
[2025-02-14 08:51] LABS: Basophils Percent Auto 0.4 % (0.0-3.0); Eosinophils Percent Auto 0.4 % (0.0-7.0); Hematocrit 32.2 % (33.0-51.0); Hemoglobin* 10.7 gm/dL (12.0-16.0); Immature Granulocytes Pct Auto 0.7 %; Lymphocytes Percent Auto 28.8 % (20-44); Mean Corpuscular HGB Conc 33 gm/dL (32-36); Mean Corpuscular Hemoglobin 29 pg (26-34); Mean Corpuscular Volume 89 fL (80-100); Monocytes Percent Auto 5.2 % (0.0-11.0); Neutrophils Percent Auto 64.5 % (42.0-72.0); Platelet Count* 162 K/uL (140-440); Red Blood Count 3.64 m/uL (4.00-5.20); White Blood Count* 2.67 K/uL (4.50-11.00)
[2025-02-14 09:01] LABS: Slide Review Reflex No
[2025-02-14 09:05] LABS: Albumin* 4.1 g/dL (3.3-5.0); Chloride* 101 mmol/L (96-114)
[2025-02-14 09:06] LABS: Sodium* 135 mmol/L (135-149)
[2025-02-14 09:08] LABS: Alanine Aminotransferase* 26 U/L (4-35); Anion Gap 8 mEq/L (7-15); Aspartate Amino Transferase* 26 U/L (12-35); Blood Urea Nitrogen* 16 mg/dL (7-30); Carbon Dioxide* 26 mmol/L (20-32); Creatinine* 0.9 mg/dL (0.5-1.5); Estimated Glomerular Filt Rate 68 ml/min
[2025-02-14 09:09] LABS: Alkaline Phosphatase* 65 U/L (40-150); Bilirubin Direct* 0.1 mg/dL (0.0-0.5); Bilirubin Total* 0.7 mg/dL (0.1-1.5); Glucose* 108 mg/dL (60-115)
[2025-02-14] MEDS: DOC/MIN OIL/MAG CIT/SOD PHOS 376 ML ENEMA PR (10:26)
[2025-02-14 11:07] VITALS: BP 131/74; PULSE 80; RESP 16; O2SAT 96
== END 2025-02-14 13:26 | disposition home or self-care (01) ==
PROVIDERS: Emergency Provider Family Medicine; PCP Internal Medicine
DX: K59.00 Constipation, unspecified (principal)
CPT/HCPCS: 36415; 74019; 80048; 80076; 85025; 99284

== ENCOUNTER 2025-02-19 09:05 | Emergency (ER) | payer MEDICARE, BC, SELFPAY ==
--- OUTSIDE RECORDS SUMMARY | 2025-02-19 09:11 | XMS_ITS | Clinical Summary ---
Author Organization [employer] [facility] Address [address] [place] [address] Care Team Providers Care Academic Manager Name Role Phone Lissa Acosta MD Primary Care Provider [phone] Allergies Active Allergy Reactions Criticality Noted Date [...] Department Care Team Description 12/26/2024 Orders Only [facility] Scanner 1 scan: (1-Ord) [facility], XR CHEST 1V PORTABLE, 12/26/2024 12/26/2024 Orders Only [facility] Scanner 1 scan: (1-Ord) [facility], XR CHEST 1V, 12/26/2024 12/25/2024 1:00 PM CDT Ancillary Procedure [facility] at [facility] [address] [place] [address] 12/21/2024 Orders Only [facility] Scanner 1 scan: (1-Ord) [facility], SHOULDER LT WO/W CON, 12/21/2024 12/20/2024 2:35 PM CDT Office Visit [facility] [address] [place] [address] Lissa Acosta MD Pre-Op Exam (DOS: 12/26/2024) 12/20/2024 Orders Only [facility] [address] [place] [address] Lissa Acosta MD 1 scan: (1-Ord) 12/20/2024 12/20/2024 Travel 12/20/[address] [phone] Lissa Acosta MD Appointment 12/19/2024 Orders Only [facility] [address] [place] [address] Rubina Orellana MD Procedure (Needs orders for port placement) 12/15/2024 7:52 AM CDT - 12/15/2024 11:59 PM CDT Hospital Encounter [facility] [address] [place] [address] Rubina Orellana MD Malignant neoplasm of upper-outer quadrant of left breast in female, estrogen receptor negative (HC) 12/15/2024 Travel 12/13/2024 9:31 AM CDT - 12/13/2024 11:59 PM CDT Hospital Encounter [facility] [address] [place] [address] Rubina Orellana MD Malignant neoplasm of upper-outer quadrant of left breast in female, estrogen receptor negative (HC) 12/13/2024 Travel 12/07/2024 Telephone [facility] [address] [place] [phone] Lissa Acosta MD Questions (PRE OP ) 12/05/2024 3:45 PM CDT Office Visit [facility] [address] [place] [address] Rubina Orellana MD Consult (Left breast cancer) 12/05/2024 Travel 11/29/2024 Lab Requisition [facility] [phone] Unknown, Doctor from Last 3 Months Immunizations Immunization Administration [...] on file Legal Sex Female 5:23 AM UNIT LEADER Gender Identity Not on file Sexual Orientation [...] history exists Mammogram for age 45-75 11/17/2025 11/18/19 23, 11/13/2024, 03/17/2017, Additional history exists BMI (ht [...] CONTRAST Routine 12/25/2024 1:45 PM CDT Other [facility] (current) drug therapy SCAN-MRI INTERPRETATION 12/21/2024 12:00 [...] CORE BIOPSY Routine 11/28/2024 10:40 AM CDT XR MAMMO BEBE UNI ADDL VIEWS LEFT RODDY 11/17/2024 2:41 PM CDT Abnormal mammogram LIPID PANEL W REFLEX MEASURED LDL Routine 08/07/2024 4:41 PM UNIT LEADER Mixed hyperlipidemia XR DXA BONE DENSITY 2 SITES AXIAL Routine 08/25/2021 3:44 PM UNIT LEADER Postmenopausal ANTI HCV Routine 05/15/2020 2:29 PM [...] Tech: DARREL Referring MD: SO BAUER Site: [facility] Reading Location: Mobile OP Patient [...] . This study was interpreted by an [facility] accredited facility. Final Procedure Note Sawyer Ochoa MD - 12/25/2024 ECHOCARDIOGRAM NAILA CRESPO : 1955 69 years Study Date: 12/25/2024 1:11:41 PM Gender: F BP: 155/83 mmHg Height: 168.00 cm BSA: 1.98 m Weight: 88.00 kg Tech: DARREL Referring MD: SO BAUER Site: [facility] Reading Location: Mobile OP Patient [...] . This study was interpreted by an [facility] accredited facility. Final us So Bauer MD [...] BASE TO MID THIGH INITIAL TREAT LOCATION: [facility] DATE: 12/15/2024 INDICATION: Initial treatment planning [...] BASE TO MID THIGH INITIAL TREAT LOCATION: [facility] DATE: 12/15/2024 INDICATION: Initial treatment planning [...] with dedicated shoulder MRI with/withoutcontrast is recommended. us Rubina Orellana MD PET Final Re sult [...] For Patients: As a result of the 21st Century Cures Act, medical imaging exams and [...] MD @ 12/13/2024 10:31:02 AM (Electronically Signed) Rubina Orellana MD Edited R esult - Final * LAB TRACKING EVENT (11/28/2024 10:40 AM CDT) Other (Other) Client Collect / Unknown 11/28/2024 10:40 AM CDT 11/29/2024 6:15 AM CDT us Doctor Unknown LAB BILL ONLY Final Result [facility] [address] [place] [address], * PATH BREAST CORE BIOPSY (11/28/2024 10:40 AM CDT) Case Report Pathology Report Case: [id number] Authorizing Provider: Unknown, Doctor Collected: 11/28/2024 1040 Ordering Location: [facility] Received: 11/29/2024 1337 Pathologist: Robin King MD Specimen: Left Breast Core Ultrasound Biopsy 5:18 PM CDT [facility] Amendment 12/01/2024 - Amendment issued to incorporate ancillary studies. 5:18 PM CDT [facility] Final Diagnosis A) LEFT BREAST, 1:00, 4 CM FROM NIPPLE, ULTRASOUND-GUIDED CORE BIOPSY: 1. Invasive ductal carcinoma a. [place]ighton grade: III of III; [place] score: 9 of 9 b. Angio-lymphatic invasion: Absent c. Associated DCIS: Absent 2. Breast Ancillary Testing: a. Hormone Receptors: Estrogen receptor: Negative (see comment) Progesterone receptor: Negative b. HER2 by IHC: Negative (1+ by manual morphometry) c. Ki-67: 52% 5:18 PM CDT [facility] Amendment electronically signed by [...] confirmation of ER status. 5:18 PM CDT [facility] Clinical Information A) left breast mass Solid, lobulated/spiculated hypoechoic mass (2.2 x 1.5 x 1.9 cm) at 1:00, 4 cm from nipple. 5:18 PM CDT [facility] Gross Description A) Label: Patient's name [...] hours and not longer than 72 hours. [facility] 11/29/2024 5:18 PM CDT [facility] Microscopic Description The final diagnosis is [...] an in situ component 5:18 PM CDT [facility] SYNOPTIC REPORTING Breast Biomarker Reporting Template [...] was evaluated by manual morphometry 5:18 PM [facility] Additional Information Patients with breast cancers [...] not result in eligibility currently). Interpreted at [facility] - [address] [place] [address] [address], [place] [address] Immunohistochemistry controls were reviewed and approved as appropriate by the pathologist during this examination. 5:18 PM CDT [facility] Other (Left Breast Core Ultrasound Biopsy) 11/28/2024 10:40 AM CDT 11/29/2024 1:37 PM CDT us Doctor Unknown PATHOLOGY/CYTOLOGY Edited Result - Final [facility] [address] [place] [address], [place] * XR MAMMO BEBE UNI ADDL VIEWS LEFT (11/17/2024 2:41 PM CDT) Anatomical Region Laterality Modality BREASTS, Breast Left Mammography 11/17/2024 3:49 PM CDT Impressions 11/17/2024 4:39 PM CDT Suspicious mass LEFT breast 1 o'clock 4 cm from the nipple measuring 2.2 cm. RECOMMENDATIONS: Ultrasound-guided core needle biopsy. BI-RADS Category 5. Highly suggestive of malignancy. Dictated by: Sawyer Power MD @11/17/2024 3:49:38 PM/[facility] PATIENTS: You will also receive a letter with your examination results in an easy to read format. If you have questions about your results, please contact your referring provider. Narrative 11/17/2024 4:39 PM CDT As a result of the 21st Century Cures Act, medical imaging exams and [...] W REFLEX MEASURED LDL (08/07/2024 4:41 PM UNIT LEADER) Pathologist [facility] CHOLESTEROL, TOTAL 122 <200 mg/dL [facility] [...] factors. LDL-C is now calculated using the Jefferson-Evelyn calculation, which is a validated novel method providing better accuracy than the Friedewald equation in the estimation of LDL-C. Jefferson SS et al. ZI. 2013;310(19): 1759-9438 (http://education.Museum of Science.SMT Research and Development/faq/IUD312) CHOL/HDLC RATIO 2.8 <5.0 (calc) [facility] NON HDL CHOLESTEROL 79 <130 mg/dL (calc) [facility] Comment: For patients with diabetes plus 1 major ASCVD risk factor, treating to a non-HDL-C goal of <100 mg/dL (LDL-C of <70 mg/dL) is considered a therapeutic option. Blood BLOOD SPECIMEN / Unknown 08/07/2024 4:41 PM UNIT LEADER 08/07/2024 4:42 PM UNIT LEADER Narrative [facility] - 08/08/2024 4:09 AM UNIT LEADER FASTING:UNKNOWN FASTING: UNKNOWN Lissa Acosta MD CHEMISTRY Final Res ult [facility] [address] [place] [address], [facility] [address] [place] [address] * (ABNORMAL) XR DXA BONE DENSITY 2 SITES AXIAL [37142.1] (08/25/2021 3:44 PM UNIT LEADER) Anatomical Region Laterality Modality Spine, HIPS, HIPL, HIPR Computed Radiography Impressions 09/02/2021 3:39 PM UNIT LEADER Osteopenia. Lowest T score -2.0. Fracture risk [...] in 5-7 years. Narrative 09/02/2021 3:39 PM UNIT LEADER For Patients: Results are automatically released to your [employer] account once available, in compliance with federal regulations. This means that you may see your results before your provider has had a chance to review them. Please allow 2-3 business days for your provider to comment on the results. XR DXA Bone Mineral Density (BMD) EXAM LOCATION: [address] [phone] PATIENT NAME: Naila Crespo DATE OF : [...] two scanners are made by the same biomedical instrument technician. PROCEDURE: Dual-energy x-ray absorptiometry performed with routine [...] 11.1%. 10-year probability of hip fracture: 1.9%. Result [facility] Lissa Acosta MD DEXA Final Res ult * ANTI HCV (05/15/2020 2:29 PM CDT) Pathologist [facility] HEPATITIS C ANTIBODY Non-React abena Non-React abena 05/15/2020 9:04 PM CDT [facility] Comment:Antibodies to HCV no t detected; does not exclude the possibility of exposure to HCV. Blood BLOOD SPECIMEN / Unknown Butterfly / Unknown 05/15/2020 2:29 PM CDT 05/15/2020 2:29 PM CDT Tommie Fitzpatrick MD SEND OUTS Final R esult [facility] 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
[2025-02-19 09:34] VITALS: BP 155/80; PULSE 73; RESP 16; TEMP 36.2; O2SAT 96; BMI 31.0
--- NOTE | 2025-02-19 10:21 | ED.GENADULT ---
HPI - General Adult General Chief complaint: Constipation Stated complaint: Having still constipation issues Time Seen by Provider: 02/19/25 09:58 History of Present Illness HPI narrative: This 69-year-old female comes in because of persistent constipation. She has breast cancer and is undergoing chemotherapy. She is not on any narcotics. The chemotherapy is having this side effect for her apparently. She was seen about 10 days ago and had some relief with enemas that were administered then. Since then she has been taking MiraLax and senna and this is providing some help. She has not had any vomiting recently but does feel some nausea symptoms. She does not report distinct pain in her abdomen but states that she feels uncomfortable. She states that her last bowel movement was about 3 days ago. She arrives here with reassuring vital signs. Related Data Home Medications ?Medication ?Instructions ?Recorded ?Confirmed acetaminophen 500 mg tablet 1,000 mg PO Q6H PRN 12/19/24 01/25/25 (Tylenol Extra Strength) atorvastatin 40 mg tablet 40 mg PO DAILY 12/19/24 01/25/25 betamethasone dipropionate 0.05 % 1 applic topical QDAY PRN 12/19/24 01/25/25 topical cream cholecalciferol (vitamin D3) 50 50 mcg PO QDAY 12/19/24 01/25/25 mcg (2,000 unit) capsule fluoxetine 20 mg capsule 60 mg PO QAM 12/19/24 01/25/25 ibuprofen 200 mg tablet (Advil) 400 mg PO Q8H PRN 01/01/25 01/25/25 magnesium 250 mg tablet 250 mg PO QDAY 01/25/25 01/25/25 vitamins B1 B6 B12 tablet tab PO .qd 01/25/25 01/25/25 Previous Rx's ?Medication ?Instructions ?Recorded lidocaine-prilocaine 2.5 %-2.5 % 2.5 applic topical DIRECTED PRN 01/10/25 topical cream port access #30 grams ondansetron HCl 4 mg tablet 4 mg PO Q8H PRN nausea and 01/30/25 vomiting #60 tabs prochlorperazine maleate 5 mg 5 mg PO TID PRN nausea and 01/30/25 tablet (Compazine) vomiting #60 tabs Allergies Allergy/AdvReac Type Severity Reaction Status Date / Time pseudoephedrine Allergy Verified 02/01/25 09:16 Review of Systems Status of ROS: Reports: 10 or more systems reviewed and unremarkable except as noted in History and below Narrative: Constitutional: No fevers, no weight gain or loss. Eyes: No discharge. No vision changes. HENT: No congestion, no sore throat, no ear pain. Cardiovascular: No chest pain, no palpitations. Respiratory: No shortness of breath, no wheezes, no cough. Gastrointestinal: No abdominal pain, no vomiting, no diarrhea. Constipation issues as described above. Genitourinary: No dysuria, no hematuria. Musculoskeletal: Normal range of motion. Skin: No rashes, no pruritis. Neurological: No dizziness, weakness, sensory change, speech change. Endo/Heme/Allergies: No bruising or bleeding. No polydipsia. Pysch: no suicidality, no anxiety, no insomnia. All other systems reviewed and are negative. [facility] Social History Smoking Status: Former smoker Do you use any of these nicotine containing products: None How often do you have a drink containing alcohol: never AUDIT-C Alcohol total score: 0 Non-prescribed substance use: denies use Caffeine: Yes (6 cups/day) Are you using contraception or practicing any form of control: No Exam Narrative: Exam Narrative: Constitutional: Well-developed, well-nourished, no acute distress. HEENT: Normocephalic, atraumatic. Neck: Normal range of motion. Nontender. Supple. Heart: Regular. No murmurs. Normal rate. Intact distal pulses. Lungs: Clear to auscultation. No chest discomfort. No wheezes, rhonchi, or rales. Abdomen: Normal bowel sounds. Nontender. No rebound tenderness. Genitalia: Deferred. Back: No midline tenderness. Normal range of motion. Extremities: Normal range of motion. No injury. Skin: Intact. No rash. Warm. No erythema or pallor. Neurologic: No altered sensation. No weakness. Alert and oriented. Psychiatric: No suicidality. No anxiety or depression. No insomnia. Nursing notes and vitals signs are reviewed. Const: Vital Signs, click to edit/add: Vital Signs - 24 hr 02/19/25 09:34 Temperature 97.1 F L Pulse Rate [Pulse Oximeter] 73 Respiratory Rate 16 Blood Pressure [Ri ght Upper Arm] 155/80 H Pulse Oximetry 96 Oxygen Delivery Me thod Room Air Course Vital Signs Vital signs: Initial Vital Signs Temperature 97.1 F L 02/19/25 09:34 Temperature Source Temporal Artery Scan 02/19/25 09:34 Pulse Rate 73 02/19/25 09:34 Respiratory Rate 16 02/19/25 09:34 Blood Pressure 155/80 H 02/19/25 09:34 Blood Pressure Mean 105 02/19/25 09:34 Blood Pressure Position Sitting 02/19/25 09:34 Pulse Oximetry 96 02/19/25 09:34 Oxygen Delivery Method Room Air 02/19/25 09:34 Vital Signs Temperature 97.1 F L 02/19/25 09:34 Pulse Rate 73 02/19/25 09:34 Respiratory Rate 16 02/19/25 09:34 Blood Pressure 155/80 H 02/19/25 09:34 Pulse Oximetry 96 02/19/25 09:34 Oxygen Delivery Method Room Air 02/19/25 09:34 Temperature 97.1 F L 02/19/25 09:34 Pulse Rate 73 02/19/25 09:34 Respiratory Rate 16 02/19/25 09:34 Blood Pressure 155/80 H 02/19/25 09:34 Pulse Oximetry 96 02/19/25 09:34 Oxygen Delivery Method Room Air 02/19/25 09:34 Medical Decision Making MDM Narrative Medical decision making narrative: This patient has some ongoing constipation issues secondary to chemotherapy. She did receive a fleets enema here which produced good results for her. She has been taking MiraLax and senna and I had described some other options to assist further in managing her good bowel regimen. She is okay to be discharged home. Discharge Plan Discharge Clinical Impression: Constipation Patient Disposition: Home, Self-Care Condition: Improved Additional Instructions: Continue current plans. Also consider other options for managing a good bowel regimen. Such options include Dulcolax, magnesium citrate, mineral oil, taking plenty of fluids, exercise, and enemas at home as needed. Follow up with MD return if worsening. Prescriptions: No Action fluoxetine 20 mg capsule 60 mg PO QAM atorvastatin 40 mg tablet 40 mg PO DAILY cholecalciferol (vitamin D3) 50 mcg (2,000 unit) capsule 50 mcg PO QDAY betamethasone dipropionate 0.05 % cream 1 applic topical QDAY PRN acetaminophen [Tylenol Extra Strength] 500 mg tablet 1,000 mg PO Q6H PRN ibuprofen [Advil] 200 mg tablet 400 mg PO Q8H PRN vitamins B1 B6 B12 Tablet PO .qd magnesium 250 mg tablet 250 mg PO QDAY lidocaine-prilocaine 2.5-2.5 % cream 2.5 applic topical DIRECTED PRN (Reason: port access) Qty: 30 0RF Rx Instructions: Apply topically as directed ondansetron HCl 4 mg tablet 4 mg PO Q8H PRN (Reason: nausea and vomiting) Qty: 60 0RF prochlorperazine maleate [Compazine] 5 mg tablet 5 mg PO TID PRN (Reason: nausea and vomiting) Qty: 60 0RF Follow Up/Referrals: Lissa Acosta MD [Primary Care Provider, Internal Medicine] Stand Alone Forms: [facility] Inst[facility]
--- NOTE | 2025-02-19 10:49 | ED.NURSE ---
Fleets enema adminstered to patient in side lying position. Patient then was able to evacuate moderate amount of formed stool. Reports relief of abdominal distention.
== END 2025-02-19 11:11 | disposition home or self-care (01) ==
PROVIDERS: Emergency Provider Emergency Medicine Emergency Medical Services; PCP Internal Medicine
DX: K59.03 Drug induced constipation (principal); T45.1X5A Adverse effect of antineoplastic and immunosuppressive drugs, initial encounter
CPT/HCPCS: 99284

== ENCOUNTER 2025-03-20 10:27 | Emergency (ER) | payer MEDICARE, BC, SELFPAY ==
--- OUTSIDE RECORDS SUMMARY | 2025-03-20 10:31 | XMS_ITS | Clinical Summary ---
Author Organization [facility] Address [address] [place] [id number] Care Team Providers Care Equities Analyst Name Role Phone Lissa Acosta MD Primary Care Provider [phone] Allergies Active Allergy Reactions Criticality Noted Date [...] Department Care Team Description 12/26/2024 Orders Only [facility] Scanner 1 scan: (1-Ord) [facility], XR CHEST 1V PORTABLE, 12/26/2024 12/26/2024 Orders Only [facility] Scanner 1 scan: (1-Ord) [facility], XR CHEST 1V, 12/26/2024 12/25/2024 1:00 PM CDT Ancillary Procedure [facility] [address] [place] [address] 12/21/2024 Orders Only [facility] Scanner 1 scan: (1-Ord) [facility], SHOULDER LT WO/W CON, 12/21/2024 12/20/2024 2:35 PM CDT Office Visit [facility] [address] [place] [address] Lissa Acosta MD Pre-Op Exam (DOS: 12/26/2024) 12/20/2024 Orders Only [facility] [address] [place] [address] Lissa Acosta MD 1 scan: (1-Ord) 12/20/2024 12/20/2024 Travel 12/20/2024 Telephone [facility] [address] [place] [address] Lissa Acosta MD Appointment 12/19/[address] 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 Gender Identity Not on file Sexual Orientation [...] season) 2024 08/06/2021, 12/04/2020, 11/06/2020 Influenza Vaccine (#1) 2025 Colonoscopy through age 75 07/17/2025 07/17/2015, [...] 08/07/2029 08/07/2024, 06/07/2023, 12/14/2022, Additional history exists Zoster (shingles) series for age 50+ Completed [...] CONTRAST Routine 12/25/2024 1:45 PM CDT 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 SCAN-MRI INTERPRETATION 12/21/2024 12:00 AM CDT EKG 12 LEAD Routine 12/20/2024 12:00 AM CDT Malignant neoplasm of upper-outer quadrant of left breast in female, estrogen receptor negative (HC) XR MAMMO BEBE UNI ADDL VIEWS LEFT RODDY 11/17/2024 2:41 PM CDT Abnormal mammogram LIPID PANEL W REFLEX MEASURED LDL Routine 08/07/2024 4:41 PM LEAD CARGO MOVER Mixed hyperlipidemia XR DXA BONE DENSITY 2 SITES AXIAL Routine 08/25/2021 3:44 PM LEAD CARGO MOVER Postmenopausal ANTI HCV Routine 05/15/2020 2:29 PM [...] Tech: DARREL Referring MD: SO BAUER Site: [facility] Reading Location: Mobile OP Patient [...] . This study was interpreted by an [facility] accredited facility. Final Procedure Note Sawyer Ochoa MD - 12/25/2024 ECHOCARDIOGRAM NAILA CRESPO : 1955 69 years Study Date: 12/25/2024 1:11:41 PM Gender: F BP: 155/83 mmHg Height: 168.00 cm BSA: 1.98 m Weight: 88.00 kg Tech: DARREL Referring MD: SO BAUER Site: [facility] Reading Location: Mobile OP Patient [...] MD EKG ORD Final Res ult * XR MAMMO BEBE [...] Dictated by: Sawyer Power MD @11/17/2024 3:49:38 PM/[facility] PATIENTS: You will also receive a letter [...] 1.5 x 1.9 cm. No axillary adenopathy. Lissa Acosta MD MAMMO Final Res ult * (ABNORMAL) LIPID PANEL W REFLEX MEASURED LDL (08/07/2024 4:41 PM LEAD CARGO MOVER) CHOLESTEROL, TOTAL 122 <200 mg/dL [facility] [...] factors. LDL-C is now calculated using the Jefferson-Rivas calculation, which is a validated novel method providing better accuracy than the Friedewald equation in the estimation of LDL-C. Jefferson SS et al. ZI. 2013;310(19): 2554-9891 (http://education.[employer]/faq/GOD359) CHOL/HDLC RATIO 2.8 <5.0 (calc) [facility] [place] NON HDL CHOLESTEROL 79 <130 mg/dL (calc) [facility] Hyatt Comment: For patients with diabetes plus 1 major ASCVD risk factor, treating to a non-HDL-C goal of <100 mg/dL (LDL-C of <70 mg/dL) is considered a therapeutic option. Blood BLOOD SPECIMEN / Unknown 08/07/2024 4:41 PM LEAD CARGO MOVER 08/07/2024 4:42 PM LEAD CARGO MOVER Narrative [facility] - 08/08/2024 4:09 AM LEAD CARGO MOVER FASTING:UNKNOWN FASTING: UNKNOWN Lissa Acosta MD CHEMISTRY Final Res ult [facility] [address] [place] [address], [facility] [id number] [place] [address] * (ABNORMAL) XR DXA BONE DENSITY 2 SITES AXIAL [00222.1] (08/25/2021 3:44 PM LEAD CARGO MOVER) Anatomical Region Laterality Modality Spine, HIPS, HIPL, HIPR Computed Radiography Impressions 09/02/2021 3:39 PM LEAD CARGO MOVER Osteopenia. Lowest T score -2.0. Fracture risk [...] in 5-7 years. Narrative 09/02/2021 3:39 PM LEAD CARGO MOVER For Patients: Results are automatically released to your [employer]) account once available, in compliance with federal regulations. This means that you may see your results before your provider has had a chance to review them. Please allow 2-3 business days for your provider to comment on the results. XR DXA Bone Mineral Density (BMD) EXAM LOCATION: [address] [address] PATIENT NAME: Naila Crespo DATE OF : [...] two scanners are made by the same mother tester. PROCEDURE: Dual-energy x-ray absorptiometry performed with routine [...] * ANTI HCV (05/15/2020 2:29 PM CDT) HEPATITIS C ANTIBODY Non-React abena Non-React abena 05/15/2020 9:04 PM CDT [facility] Comment:Antibodies to HCV no t detected; does not exclude the possibility of exposure to HCV. Blood BLOOD SPECIMEN / Unknown Butterfly / Unknown 05/15/2020 2:29 PM CDT 05/15/2020 2:29 PM CDT Tommie Fitzpatrick MD SEND OUTS Final R esult [facility] 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
[2025-03-20 10:44] VITALS: BP 143/87; PULSE 84; RESP 20; TEMP 36.1; O2SAT 100
--- NOTE | 2025-03-20 11:21 | ED.GENADULT ---
HPI - General Adult General Chief complaint: Nausea/Vomiting Stated complaint: feels sick to her stomach, has the shakes Time Seen by Provider: 03/20/25 11:20 History of Present Illness HPI narrative: Received chemo on 03/14 (double dose, normally receives every 3d treatment per pt). Usually has nausea/vomiting /weakness for two days after, has felt symptoms since treatment last week. Unable to eat/drink r/t nausea. Has tried zofran, and one other med daily since treatment with no relief . 69-year-old woman presenting to the emergency department with concern nausea, vomiting. Has been vomiting over the last 3 days but none today. It is now about noon. She says ever since her extra dose of chemo which she received 5 days ago, she has just been weak and unable to tolerate intake. She has had the shakes which apparently have happened historically when she is under stressors. This is not necessarily unusual but does degree of reaction to her chemo she says would be unusual. No pain. Does have Zofran she is unsure whether not it is helpful. To be having a little trouble focusing now. Has had some cough over the last week; more at night. Related Data Home Medications ?Medication ?Instructions ?Recorded ?Confirmed acetaminophen 500 mg tablet 1,000 mg PO Q6H PRN 12/19/24 03/15/25 (Tylenol Extra Strength) atorvastatin 40 mg tablet 40 mg PO DAILY 12/19/24 03/15/25 betamethasone dipropionate 0.05 % 1 applic topical QDAY PRN 12/19/24 03/15/25 topical cream cholecalciferol (vitamin D3) 50 50 mcg PO QDAY 12/19/24 03/15/25 mcg (2,000 unit) capsule fluoxetine 20 mg capsule 60 mg PO QAM 12/19/24 03/15/25 ibuprofen 200 mg tablet (Advil) 400 mg PO Q8H PRN 01/01/25 03/15/25 magnesium 250 mg tablet 250 mg PO QDAY 01/25/25 03/15/25 vitamins B1 B6 B12 tablet tab PO .qd 01/25/25 03/15/25 Previous Rx's ?Medication ?Instructions ?Recorded lidocaine-prilocaine 2.5 %-2.5 % 2.5 applic topical DIRECTED PRN 01/10/25 topical cream port access #30 grams ondansetron HCl 4 mg tablet 4 mg PO Q8H PRN nausea and 01/30/25 vomiting #60 tabs prochlorperazine maleate 5 mg 5 mg PO TID PRN nausea and 03/01/25 tablet (Compazine) vomiting #60 tabs metoclopramide HCl 10 mg tablet 10 mg PO TID-QID PRN nausea and 03/20/25 vomiting #15 tabs Allergies Allergy/AdvReac Type Severity Reaction Status Date / Time pseudoephedrine Allergy Verified 03/20/25 10:43 Review of Systems Status of ROS: Reports: 6 or more systems reviewed and unremarkable except as noted in History and below [facility] Social History Smoking Status: Former smoker Do you use any of these nicotine containing products: None How often do you have a drink containing alcohol: never AUDIT-C Alcohol total score: 0 Non-prescribed substance use: denies use Caffeine: Yes (6 cups/day) Are you using contraception or practicing any form of control: No Exam Narrative: Exam Narrative: Pleasant. Tremulous. Quite alert. Engages quickly in conversation. She is mildly tachypneic. Lungs are clear. Oropharynx with upper denture plate. A little sticky. Abdomen is soft and nontender. Extremities are well perfused. There is no lower extremity edema. Const: Vital Signs, click to edit/add: Vital Signs - 24 hr 03/20/25 10:44 03/20/25 13:04 03/20/25 15:23 Temperature 96.9 F L 97.8 F 97.1 F L Pulse Rate [Pulse Oximeter] 84 72 87 Respiratory Rate 20 20 18 Blood Pressure [facility]] 143/87 H 159/68 H 139/62 Pulse Oximetry 100 100 95 Oxygen Delivery Me thod Room Air Room Air Room Air Documenting provider has reviewed patient's vital signs: yes Course Vital Signs Vital signs: Initial Vital Signs Temperature 96.9 F L 03/20/25 10:44 Temperature Source Temporal Artery Scan 03/20/25 10:44 Pulse Rate 84 03/20/25 10:44 Respiratory Rate 20 03/20/25 10:44 Blood Pressure 143/87 H 03/20/25 10:44 Blood Pressure Mean 105 03/20/25 10:44 Blood Pressure Position Sitting 03/20/25 10:44 Pulse Oximetry 100 03/20/25 10:44 Oxygen Delivery Method Room Air 03/20/25 10:44 Vital Signs Temperature 96.9 F L 03/20/25 10:44 Pulse Rate 84 03/20/25 10:44 Respiratory Rate 20 03/20/25 10:44 Blood Pressure 143/87 H 03/20/25 10:44 Pulse Oximetry 100 03/20/25 10:44 Oxygen Delivery Method Room Air 03/20/25 10:44 Temperature 97.1 F L 03/20/25 15:23 Pulse Rate 87 03/20/25 15:23 Respiratory Rate 18 03/20/25 15:23 Blood Pressure 139/62 03/20/25 15:23 Pulse Oximetry 95 03/20/25 15:23 Oxygen Delivery Method Room Air 03/20/25 15:23 Medications Administered Medications: Discontinued Medications Generic Name Dose Route Start Last Admin Trade Name Freq PRN Reason Stop Dose Admin Sodium Chloride 1,000 mls @ 1,000 mls/hr 03/20/25 11:32 03/20/25 13:40 0.9 % Sodium Chloride 1000 Ml IV 03/20/25 12:31 Infused .Q1H ONE Infusion Metoclopramide HCl 10 mg/ 102 mls @ 306 mls/hr 03/20/25 13:52 03/20/25 14:55 Sodium Chloride IVPB 03/20/25 13:53 Infused ONCE ONE Infusion Lactated Ringer's 1,000 mls @ 1,000 mls/hr 03/20/25 13:54 03/20/25 15:23 Lactated Ringers 1000 Ml IV 03/20/25 14:53 Infused .Q1H ONE Infusion Lorazepam 0.5 mg 03/20/25 12:51 03/20/25 13:03 Lorazepam 0.5 Mg Tablet PO 03/20/25 12:52 0.5 mg ONCE ONE Administration Ondansetron HCl 4 mg 03/20/25 11:32 03/20/25 12:44 Ondansetron 2 Mg/Ml Inj IVP 03/20/25 11:33 4 mg ONCE ONE Administration Medical Decision Making MDM Narrative Medical decision making narrative: Would have concerns of dehydration and malnutrition. Possible significant infection, sepsis given the shakes that might represent occurs, that were described though apparently this is not completely atypical has they note when she is feeling stressed. COVID? Influenza? Will initiate hydration. Check standard labs and blood cultures. Absolute neutrophil count is 1.5 Labs otherwise further look better than I expected. A little improved on Zofran initial L of fluids. Given another L of LR and then Reglan. On reassessment is now improved. Vitals have remained good during time in the emergency department. She feels better and would like to return home. Did give oral challenge and this went well. See patient discharge plan for further discussion I am pleased you are feeling better. Focus on hydration. Light diet over the next 24 hours. I am prescribing another, a different anti nausea medication; it was the 2nd one you received here called metoclopramide. Blood in urine cultures are pending. Will call you if anything looks concerning. Return for repeated vomiting, fever, increasing/intolerable pain. Medical Records Medical records reviewed: Yes I reviewed the patient's medical records Lab Data Lab results reviewed: Yes I reviewed the patient's lab results Labs: Lab Results 03/20/25 03/20/25 03/20/25 Range/Units 12:14 12:28 12:46 WBC 3.29 L (4.50-11.00) K/uL RBC 3.90 L (4.00-5.20) m/uL Hgb 12.0 (12.0-16.0) gm/dL Hct 34.7 (33.0-51.0) % MCV 89 (80-100) fL MCH 31 (26-34) pg MCHC 35 (32-36) gm/dL RDW Coeff of [place] 14.0 (11.5-15.5) % Plt Count 164 (140-440) K/uL Neut % (Auto) 44.1 (42.0-72.0) % Lymph % (Auto) 46.8 H (20-44) % Hard[place] % (Auto) 7.6 (0.0-11.0) % Eos % (Auto) 0.9 (0.0-7.0) % Baso % (Auto) 0.3 (0.0-3.0) % Neut # (Auto) 1.50 L (1.7-7.0) K/uL Lymph # (Auto) 1.50 (0.90-2.90) K/uL Hardin # (Auto) 0.30 (0.00-0.90) K/UL Eos # (Auto) 0.00 (0.00-0.50) K/uL Baso # (Auto) 0.00 (0.00-0.30) K/uL Abs Immat Gran (auto) 0.00 (0.00-0.30) K/uL Imm/Tot Granulo (auto) 0.3 % VBG pH 7.455 H (7.32-7.43) VBG pCO2 36 L (40-50) mmHG VBG pO2 32.1 (25-47) mmHG VBG HCO3 25 (21-28) mmol/L Sodium 133 L (135-149) mmol/L Potassium 4.1 (3.6-5.1) mmol/L Chloride 101 (96-114) mmol/L Carbon Dioxide 25 (20-32) mmol/L Anion Gap 7 (7-15) mEq/L BUN 15 (7-30) mg/dL Creatinine 0.8 (0.5-1.5) mg/dL Estimated GFR 79 ml/min Glucose 98 (60-115) mg/dL Lactate 1.3 (0.5-1.9) mmol/L Calcium 9.4 (8.4-10.6) mg/dL Magnesium 2.0 (1.5-2.6) mg/dL Total Bilirubin 1.1 (0.1-1.5) mg/dL Direct Bilirubin 0.1 (0.0-0.5) mg/dL AST 37 H (12-35) U/L ALT 34 (4-35) U/L Alkaline Phosphatase 65 (40-150) U/L C-Reactive Protein < 0.5 L (0.5-1.0) mg/dL Total Protein 7.6 (6.0-8.3) g/dL Albumin 4.3 (3.3-5.0) g/dL Urine Color Yellow (Yellow) Urine Appearance Clear (Clear) Urine pH 6.5 (5.0-8.5) Ur Specific [place] 1.015 (1.000-1.030) Urine Protein Negative (Negative) Urine Glucose (UA) Negative (Negative) Urine Ketones 1+ A (Negative) Urine Blood Negative (Negative) Urine Nitrite Negative (Negative) Urine Bilirubin Negative (Negative) Urine Urobilinogen 1.0 (0.2-1.0) Ur Leukocyte Esterase Trace A (Negative) Urine RBC 0-2 (0-2) Urine WBC 0-2 (0-5) Ur Squamous Epith Cells Few (None-Few) Urine Bacteria None (None) SARS-CoV-2 (PCR) Negative SARS-CoV-2 (Negative) Influenza Type A (PCR) Negative PCR FLU A (Negative) Influenza Type B (PCR) Negative PCR FLU B (Negative) RSV (PCR) Negative PCR RSV (Negative) Lab Acknowledgement 03/20/25 Range/Units 13:54 WBC (4.50-11.00) K/uL RBC (4.00-5.20) m/uL Hgb (12.0-16.0) gm/dL Hct (33.0-51.0) % MCV (80-100) fL MCH (26-34) pg MCHC (32-36) gm/dL RDW Coeff of [place] (11.5-15.5) % Plt Count (140-440) K/uL Neut % (Auto) (42.0-72.0) % Lymph % (Auto) (20-44) % Hard[place] % (Auto) (0.0-11.0) % Eos % (Auto) (0.0-7.0) % Baso % (Auto) (0.0-3.0) % Neut # (Auto) (1.7-7.0) K/uL Lymph # (Auto) (0.90-2.90) K/uL [place] # (Auto) (0.00-0.90) K/UL Eos # (Auto) (0.00-0.50) K/uL Baso # (Auto) (0.00-0.30) K/uL Abs Immat Gran (auto) (0.00-0.30) K/uL Imm/Tot Granulo (auto) % VBG pH (7.32-7.43) VBG pCO2 (40-50) mmHG VBG pO2 (25-47) mmHG VBG HCO3 (21-28) mmol/L Sodium (135-149) mmol/L Potassium (3.6-5.1) mmol/L Chloride (96-114) mmol/L Carbon Dioxide (20-32) mmol/L Anion Gap (7-15) mEq/L BUN (7-30) mg/dL Creatinine (0.5-1.5) mg/dL Estimated GFR ml/min Glucose (60-115) mg/dL Lactate (0.5-1.9) mmol/L Calcium (8.4-10.6) mg/dL Magnesium (1.5-2.6) mg/dL Total Bilirubin (0.1-1.5) mg/dL Direct Bilirubin (0.0-0.5) mg/dL AST (12-35) U/L ALT (4-35) U/L Alkaline Phosphatase (40-150) U/L C-Reactive Protein (0.5-1.0) mg/dL Total Protein (6.0-8.3) g/dL Albumin (3.3-5.0) g/dL Urine Color (Yellow) Urine Appearance (Clear) Urine pH (5.0-8.5) Ur Specific [place] (1.000-1.030) Urine Protein (Negative) Urine Glucose (UA) (Negative) Urine Ketones (Negative) Urine Blood (Negative) Urine Nitrite (Negative) Urine Bilirubin (Negative) Urine Urobilinogen (0.2-1.0) Ur Leukocyte Esterase (Negative) Urine RBC (0-2) Urine WBC (0-5) Ur Squamous Epith Cells (None-Few) Urine Bacteria (None) SARS-CoV-2 (PCR) (Negative) Influenza Type A (PCR) (Negative) Influenza Type B (PCR) (Negative) RSV (PCR) (Negative) Lab Acknowledgement Test Added Discharge Plan Discharge Clinical Impression: Vomiting, Nausea, Dehydration Patient Disposition: Home w/ Parent or Adult Condition: Improved Additional Instructions: I am pleased you are feeling better. Focus on hydration. Light diet over the next 24 hours. I am prescribing another, a different anti nausea medication; it was the 2nd one you received here called metoclopramide. Blood in urine cultures are pending. Will call you if anything looks concerning. Return for repeated vomiting, fever, increasing/intolerable pain. Prescriptions: New metoclopramide HCl 10 mg tablet 10 mg PO TID-QID PRN (Reason: nausea and vomiting) Qty: 15 0RF No Action fluoxetine 20 mg capsule 60 mg PO QAM atorvastatin 40 mg tablet 40 mg PO DAILY cholecalciferol (vitamin D3) 50 mcg (2,000 unit) capsule 50 mcg PO QDAY betamethasone dipropionate 0.05 % cream 1 applic topical QDAY PRN acetaminophen [Tylenol Extra Strength] 500 mg tablet 1,000 mg PO Q6H PRN ibuprofen [Advil] 200 mg tablet 400 mg PO Q8H PRN vitamins B1 B6 B12 Tablet PO .qd magnesium 250 mg tablet 250 mg PO QDAY prochlorperazine maleate [Compazine] 5 mg tablet 5 mg PO TID PRN (Reason: nausea and vomiting) Qty: 60 0RF lidocaine-prilocaine 2.5-2.5 % cream 2.5 applic topical DIRECTED PRN (Reason: port access) Qty: 30 0RF Rx Instructions: Apply topically as directed ondansetron HCl 4 mg tablet 4 mg PO Q8H PRN (Reason: nausea and vomiting) Qty: 60 0RF Follow Up/Referrals: Lissa Acosta MD [Primary Care Provider, Internal Medicine] Stand Alone Forms: [facility] Info Instructions Procedures ABG Interpretation ABG Results: 03/20/25 12:28 VBG pH 7.455 H VBG pCO2 36 L VBG pO2 32.1 VBG HCO3 25
[2025-03-20 12:41] LABS: HCO3 VBG 25 mmol/L (21-28); Lactate* 1.3 mmol/L (0.5-1.9); PCO2 VBG 36 mmHG (40-50); PO2 VBG 32.1 mmHG (25-47); pH VBG 7.455 (7.32-7.43)
[2025-03-20 12:44] LABS: Hematocrit 34.7 % (33.0-51.0); Hemoglobin* 12.0 gm/dL (12.0-16.0); Immature Granulocytes Pct Auto 0.3 %; Mean Corpuscular HGB Conc 35 gm/dL (32-36); Mean Corpuscular Hemoglobin 31 pg (26-34); Mean Corpuscular Volume 89 fL (80-100); RDW Coefficient of Variation % 14.0 % (11.5-15.5); Red Blood Count 3.90 m/uL (4.00-5.20); White Blood Count* 3.29 K/uL (4.50-11.00)
[2025-03-20] MEDS: ONDANSETRON 2 MG/ML inj 4 MG IVP (12:44)
[2025-03-20 12:46] LABS: Immature Granulocytes Abs Auto 0.00 K/uL (0.00-0.30); Lymphocytes Absolute Auto 1.50 K/uL (0.90-2.90)
[2025-03-20 12:47] LABS: Slide Review Reflex No
[2025-03-20 12:58] LABS: Albumin* 4.3 g/dL (3.3-5.0); Chloride* 101 mmol/L (96-114)
[2025-03-20 12:59] LABS: Potassium* 4.1 mmol/L (3.6-5.1); Sodium* 133 mmol/L (135-149)
[2025-03-20 13:01] LABS: Blood Urea Nitrogen* 15 mg/dL (7-30); Creatinine* 0.8 mg/dL (0.5-1.5); Estimated Glomerular Filt Rate 79 ml/min
[2025-03-20 13:02] LABS: Alanine Aminotransferase* 34 U/L (4-35); Alkaline Phosphatase* 65 U/L (40-150); Anion Gap 7 mEq/L (7-15); Aspartate Amino Transferase* 37 U/L (12-35); Bilirubin Direct* 0.1 mg/dL (0.0-0.5); Bilirubin Total* 1.1 mg/dL (0.1-1.5); Calcium* 9.4 mg/dL (8.4-10.6); Carbon Dioxide* 25 mmol/L (20-32); Glucose* 98 mg/dL (60-115); Total Protein* 7.6 g/dL (6.0-8.3)
[2025-03-20 13:04] VITALS: BP 159/68; PULSE 72; RESP 20; TEMP 36.6; O2SAT 100
[2025-03-20 13:32] LABS: PCR FLU A Negative PCR FLU A (Negative); PCR FLU B Negative PCR FLU B (Negative); PCR RSV Negative PCR RSV (Negative); SARS PCR* Negative SARS-CoV-2 (Negative)
[2025-03-20] MEDS: METOCLOPRAMIDE HCL 10 MG in 0.9 % SODIUM CHLORIDE 100 ml 100 ML 306 MG IVPB (14:19)
[2025-03-20] MEDS: LACTATED RINGERS 1000 ML 1,000 ML IV (14:20)
[2025-03-20 14:27] LABS: Appearance Urine Clear (Clear)
[2025-03-20 15:23] VITALS: BP 139/62; PULSE 87; RESP 18; TEMP 36.2; O2SAT 95
== END 2025-03-20 16:29 | disposition home or self-care (01) ==
PROVIDERS: Emergency Provider Family Medicine; PCP Internal Medicine
DX: R11.2 Nausea with vomiting, unspecified (principal); E86.0 Dehydration
CPT/HCPCS: 36415; 80048; 80076; 81001; 82803; 83605; 83735; 85025; 86140; 87040; 87086; 87631; 94761; 96365; 96375; 99284; A9270; J2405; J2765; J7030; J7120

== ENCOUNTER 2025-03-22 11:24 | Outpatient (CLI) | payer MEDICARE, BC, SELFPAY ==
--- NOTE | 2025-03-22 11:30 | CRLHL7_ITS ---
For Patients: As a result of the 21st Century Cures Act, medical imaging exams and procedure reports are released immediately into your electronic medical record. You may view this report before your referring provider. If you have questions, please contact your health care provider. INDICATION: Fatigue. Tachypnea. Breast cancer. COMPARISON: None TECHNIQUE: : CT examination of the chest was performed with the uneventful intravenous administration of 95 cc of Isovue 370 while thin axial sections were obtained from above the apices of the lungs to the lung bases. The examination was timed as a pulmonary artery angiogram. 3D reformat/MIP imaging was provided. Please note that all CT scans at this facility use dose modulation, iterative reconstruction, and/or weight-based dosing when appropriate to reduce radiation dose to as low as reasonably achievable. FINDINGS: : HEART and MEDIASTINUM: The heart size is normal. There is no mediastinal or hilar adenopathy or mass. There is no pericardial effusion. PULMONARY ARTERIAL CIRCULATION: There is no visible intraluminal filling defect to suggest pulmonary embolus. Mildly prominent pulmonary arteries may indicate pulmonary hypertension. LUNGS and PLEURAL SPACES: There is emphysema. This is moderate, upper lobe predominant and has both centrilobular and paraseptal components. there are also subpleural reticular opacities. These are relatively mild and probably represent mild interstitial fibrosis. As a 3rd finding, there are patchy ground-glass opacities that are primarily peripheral and basilar. This is probably inflammatory and could be related to the active phase of interstitial lung disease, atypical infectious or related drug administration. The pattern is nonspecific. This pattern is not typical for primary or secondary malignant involvement of the lung. There is no definite finding to suggest metastatic disease to the lungs or pleural spaces VISUALIZED UPPER ABDOMEN: The limited visualized upper abdominal structures appear normal. OSSEOUS STRUCTURES: Age-appropriate appearance. No acute fracture or destructive process.No evidence of metastatic disease TUBES and LINES: A port is normally located IMPRESSION: 1. Normal-sized heart. No mediastinal or hilar adenopathy or mass. 2. No evidence of pulmonary embolus. Mildly prominent pulmonary arteries may indicate pulmonary hypertension. 3. Moderate emphysema. This is primarily centrilobular emphysema, upper lobe predominant. 4. A few subpleural reticular opacities are noted consistent with mild interstitial fibrosis. No consolidation or mass or definite findings of metastatic disease to the lungs or pleural spaces. 5. There are patchy ground-glass opacities that are primarily peripheral and basilar. These are roughly bilateral symmetric. Nonspecific finding. Considerations include inflammatory as can be seen in the active phase of interstitial lung disease, atypical infectious or related to drug administration amongst other possibilities. This is not a typical pattern for the primary or secondary involvement of the lungs with malignancy. 6. No evidence of osseous metastatic disease. 7. Port normally located Please note that all CT scans at this facility use dose modulation, iterative reconstruction, and/or weight-based dosing when appropriate to reduce radiation dose to as low as reasonably achievable. Dictated by Zander Palomo MD @ 03/22/2025 12:39:38 PM (Electronically Signed)
== END 2025-03-22 11:25 | disposition home or self-care (01) ==
LOC: CT 11:24
PROVIDERS: PCP Internal Medicine; Visit Provider Physician Assistant
DX: R06.82 Tachypnea, not elsewhere classified (principal); R53.83 Other fatigue; J43.9 Emphysema, unspecified; J94.1 Fibrothorax
CPT/HCPCS: 71275; Q9967

== ENCOUNTER 2025-03-29 10:15 | Outpatient (RCR) | payer MEDICARE, BC, SELFPAY ==
--- NOTE | 2024-12-21 10:28 | URNOTE ---
Received request for prior authorization for Pembrolizumab (J9271),Paclitaxel (J9267), Carboplatin (J9045), Aloxi (J2469). Pt has Medicare/ [place] (active on [employer]). Prior authorization is not required. Services are based on medical necessity and follow Medicare guidelines.
[2024-12-25 14:21] LABS: Hematocrit* 39.3 % (33.0-51.0); Hemoglobin* 13.0 gm/dL (12.0-16.0); Immature Granulocytes Abs Auto 0.01 K/uL (0.00-0.30); Immature Granulocytes Pct Auto 0.1 %; Lymphocytes Absolute Auto 2.16 K/uL (0.90-2.90); Mean Corpuscular HGB Conc 33 gm/dL (32-36); Mean Corpuscular Hemoglobin 29 pg (26-34); Mean Corpuscular Volume 87 fL (80-100); RDW Coefficient of Variation % 13.1 % (11.5-15.5); Red Blood Count* 4.52 m/uL (4.00-5.20); White Blood Count* 7.12 K/uL (4.50-11.00)
[2024-12-25 14:32] LABS: Chloride* 99 mmol/L (96-114); Slide Review Reflex No
[2024-12-25 14:33] LABS: Albumin* 4.2 g/dL (3.3-5.0); Potassium* 4.0 mmol/L (3.6-5.1); Sodium* 135 mmol/L (135-149)
[2024-12-25 14:36] LABS: Alanine Aminotransferase* 17 U/L (4-35); Alkaline Phosphatase* 75 U/L (40-150); Anion Gap 7 mEq/L (7-15); Aspartate Amino Transferase* 23 U/L (12-35); Bilirubin Total* 0.5 mg/dL (0.1-1.5); Blood Urea Nitrogen* 16 mg/dL (7-30); Calcium* 8.8 mg/dL (8.4-10.6); Carbon Dioxide* 29 mmol/L (20-32); Creatinine* 0.9 mg/dL (0.5-1.5); Est. Creatinine Clearance* 46.43; Estimated Glomerular Filt Rate 68 ml/min; Glucose* 107 mg/dL (60-115); Total Protein* 7.3 g/dL (6.0-8.3)
[2025-01-01] MEDS: PEMBROLIZUMAB 200 MG, TUBING PRIMARY 1 EACH, In-line 0.2 micron filter set 1 EACH in 0.... 216 MG IVPB (10:52)
[2025-01-01] MEDS: dexAMETHasone 20 MG in 0.9 % SODIUM CHLORIDE 100 ml 100 ML 408 MG IVPB (11:35)
[2025-01-01] MEDS: FAMOTIDINE 20 MG, diphenhydrAMINE 50 MG in 0.9 % SODIUM CHLORIDE 100 ml 100 ML 309 MG IVPB (11:58)
--- NOTE | 2025-01-01 12:17 | ONC.NURNOTE ---
Chemo Infusion Schedule Pt started chemotx on 01/01 as first available. Then has asked to transition to for her work schedule; schedule adjusted to reflect these changes.
[2025-01-01] MEDS: PACLITAXEL IV (12:26)
[2025-01-01] MEDS: MICRON FILTER SET IV (12:26)
[2025-01-01] MEDS: TUBING PRIMARY IV (12:26)
[2025-01-01] MEDS: IN LINE IV (12:26)
[2025-01-01] MEDS: [UNRECOGNIZED DRUG - OTHER] IV (12:26)
[2025-01-01] MEDS: CARBOPLATIN IVPB (13:42)
[2025-01-01] MEDS: TUBING SECONDARY IVPB (13:42)
[2025-01-01] MEDS: SODIUM CHLORIDE 0.9% IVPB (13:42)
--- NOTE | 2025-01-02 12:12 | ONC.NURNOTE ---
Nurse Call Day after 1st Chemo Pt states she is feeling well; denies nausea. Took antiemetic last night and this morning. She notes she did have some reflux overnight x 1 that was relieved by Tums; denies difficulty sleeping. No concerns; reinforced to call with questions. She verbalizes understanding.
[2025-01-10 09:03] VITALS: BP 129/79; PULSE 68; RESP 16; TEMP 36.2; O2SAT 95
[2025-01-10] MEDS: dexAMETHasone 20 MG in 0.9 % SODIUM CHLORIDE 100 ml 100 ML 408 MG IVPB (09:42)
[2025-01-10] MEDS: FAMOTIDINE 20 MG, diphenhydrAMINE 50 MG in 0.9 % SODIUM CHLORIDE 100 ml 100 ML 309 MG IVPB (10:06)
[2025-01-10] MEDS: PACLITAXEL IV (10:31)
[2025-01-10] MEDS: IN LINE IV (10:31)
[2025-01-10] MEDS: TUBING PRIMARY IV (10:31)
[2025-01-10] MEDS: [UNRECOGNIZED DRUG - OTHER] IV (10:31)
[2025-01-10] MEDS: MICRON FILTER SET IV (10:31)
[2025-01-10] MEDS: TUBING SECONDARY IVPB (11:41)
[2025-01-10] MEDS: CARBOPLATIN IVPB (11:41)
[2025-01-10] MEDS: SODIUM CHLORIDE 0.9% IVPB (11:41)
[2025-01-18 08:10] VITALS: BP 148/80; PULSE 78; RESP 16; TEMP 36.7; O2SAT 96
[2025-01-18 08:36] LABS: Hematocrit* 33.6 % (33.0-51.0); Hemoglobin* 11.0 gm/dL (12.0-16.0); Immature Granulocytes Abs Auto 0.00 K/uL (0.00-0.30); Immature Granulocytes Pct Auto 0.0 %; Mean Corpuscular HGB Conc 33 gm/dL (32-36); Mean Corpuscular Hemoglobin 29 pg (26-34); Mean Corpuscular Volume 89 fL (80-100); RDW Coefficient of Variation % 12.9 % (11.5-15.5); Red Blood Count* 3.79 m/uL (4.00-5.20); White Blood Count* 3.43 K/uL (4.50-11.00)
[2025-01-18 08:40] LABS: Lymphocytes Absolute Auto 1.00 K/uL (0.90-2.90); Slide Review Reflex No
[2025-01-18 08:52] LABS: Albumin* 3.9 g/dL (3.3-5.0); Chloride* 101 mmol/L (96-114); Potassium* 4.5 mmol/L (3.6-5.1); Sodium* 136 mmol/L (135-149)
[2025-01-18 08:55] LABS: Alanine Aminotransferase* 18 U/L (4-35); Alkaline Phosphatase* 70 U/L (40-150); Anion Gap 5 mEq/L (7-15); Aspartate Amino Transferase* 21 U/L (12-35); Bilirubin Total* 0.5 mg/dL (0.1-1.5); Blood Urea Nitrogen* 14 mg/dL (7-30); Calcium* 8.8 mg/dL (8.4-10.6); Carbon Dioxide* 30 mmol/L (20-32); Creatinine* 0.9 mg/dL (0.5-1.5); Est. Creatinine Clearance* 46.43; Estimated Glomerular Filt Rate 68 ml/min; Glucose* 93 mg/dL (60-115); Total Protein* 6.9 g/dL (6.0-8.3)
[2025-01-18] MEDS: dexAMETHasone 20 MG in 0.9 % SODIUM CHLORIDE 100 ml 100 ML 408 MG IVPB (09:35)
[2025-01-18] MEDS: FAMOTIDINE 20 MG, diphenhydrAMINE 50 MG in 0.9 % SODIUM CHLORIDE 100 ml 100 ML 309 MG IVPB (09:58)
[2025-01-18] MEDS: [UNRECOGNIZED DRUG - OTHER] IV (10:26)
[2025-01-18] MEDS: TUBING PRIMARY IV (10:26)
[2025-01-18] MEDS: PACLITAXEL IV (10:26)
[2025-01-18] MEDS: IN LINE IV (10:26)
[2025-01-18] MEDS: MICRON FILTER SET IV (10:26)
[2025-01-18] MEDS: SODIUM CHLORIDE 0.9% IVPB (11:42)
[2025-01-18] MEDS: CARBOPLATIN IVPB (11:42)
[2025-01-18] MEDS: TUBING SECONDARY IVPB (11:42)
[2025-01-18] MEDS: HEPARIN 500 UNIT/5 ML SYRINGE IVF (12:38)
[2025-01-25 08:05] LABS: Hematocrit* 34.0 % (33.0-51.0); Hemoglobin* 11.0 gm/dL (12.0-16.0); Immature Granulocytes Pct Auto 0.6 %; Mean Corpuscular HGB Conc 32 gm/dL (32-36); Mean Corpuscular Hemoglobin 29 pg (26-34); Mean Corpuscular Volume 89 fL (80-100); RDW Coefficient of Variation % 13.1 % (11.5-15.5); Red Blood Count* 3.81 m/uL (4.00-5.20); White Blood Count* 3.54 K/uL (4.50-11.00)
[2025-01-25 08:08] LABS: Immature Granulocytes Abs Auto 0.00 K/uL (0.00-0.30); Lymphocytes Absolute Auto 1.30 K/uL (0.90-2.90); Slide Review Reflex No
[2025-01-25 08:24] LABS: Albumin* 3.9 g/dL (3.3-5.0); Chloride* 103 mmol/L (96-114); Sodium* 136 mmol/L (135-149)
[2025-01-25 08:25] LABS: Potassium* 4.3 mmol/L (3.6-5.1)
[2025-01-25 08:27] LABS: Alanine Aminotransferase* 20 U/L (4-35); Anion Gap 5 mEq/L (7-15); Aspartate Amino Transferase* 24 U/L (12-35); Blood Urea Nitrogen* 14 mg/dL (7-30); Carbon Dioxide* 28 mmol/L (20-32); Creatinine* 0.8 mg/dL (0.5-1.5); Est. Creatinine Clearance* 46.43; Estimated Glomerular Filt Rate 79 ml/min
[2025-01-25 08:28] LABS: Alkaline Phosphatase* 66 U/L (40-150); Bilirubin Total* 0.5 mg/dL (0.1-1.5); Calcium* 8.8 mg/dL (8.4-10.6); Glucose* 91 mg/dL (60-115); Total Protein* 6.8 g/dL (6.0-8.3)
[2025-01-25] MEDS: PEMBROLIZUMAB 200 MG, TUBING PRIMARY 1 EACH, In-line 0.2 micron filter set 1 EACH in 0.... 216 MG IVPB (10:16)
[2025-01-25] MEDS: dexAMETHasone 20 MG in 0.9 % SODIUM CHLORIDE 100 ml 100 ML 408 MG IVPB (10:47)
[2025-01-25] MEDS: SODIUM CHLORIDE 0.9 % (FLUSH) 10 ML SYRINGE IVF (10:48)
[2025-01-25] MEDS: FAMOTIDINE 20 MG, diphenhydrAMINE 50 MG in 0.9 % SODIUM CHLORIDE 100 ml 100 ML 309 MG IVPB (11:07)
[2025-01-25] MEDS: PACLITAXEL IV (11:37)
[2025-01-25] MEDS: IN LINE IV (11:37)
[2025-01-25] MEDS: [UNRECOGNIZED DRUG - OTHER] IV (11:37)
[2025-01-25] MEDS: MICRON FILTER SET IV (11:37)
[2025-01-25] MEDS: TUBING PRIMARY IV (11:37)
[2025-01-25] MEDS: TUBING SECONDARY IVPB (12:47)
[2025-01-25] MEDS: CARBOPLATIN IVPB (12:47)
[2025-01-25] MEDS: SODIUM CHLORIDE 0.9% IVPB (12:47)
[2025-02-01 08:41] VITALS: BP 149/75; PULSE 72; TEMP 36.4; O2SAT 94
[2025-02-01 08:46] LABS: Hematocrit* 32.9 % (33.0-51.0); Hemoglobin* 11.0 gm/dL (12.0-16.0); Immature Granulocytes Pct Auto 1.1 %; Mean Corpuscular HGB Conc 33 gm/dL (32-36); Mean Corpuscular Hemoglobin 30 pg (26-34); Mean Corpuscular Volume 88 fL (80-100); RDW Coefficient of Variation % 13.4 % (11.5-15.5); Red Blood Count* 3.72 m/uL (4.00-5.20); White Blood Count* 3.50 K/uL (4.50-11.00)
[2025-02-01 08:48] LABS: Immature Granulocytes Abs Auto 0.00 K/uL (0.00-0.30); Lymphocytes Absolute Auto 1.30 K/uL (0.90-2.90); Slide Review Reflex No
[2025-02-01 08:55] LABS: Chloride* 101 mmol/L (96-114)
[2025-02-01 08:56] LABS: Albumin* 3.9 g/dL (3.3-5.0); Potassium* 4.5 mmol/L (3.6-5.1); Sodium* 134 mmol/L (135-149)
[2025-02-01 08:58] LABS: Blood Urea Nitrogen* 11 mg/dL (7-30); Creatinine* 0.8 mg/dL (0.5-1.5); Est. Creatinine Clearance* 46.43; Estimated Glomerular Filt Rate 79 ml/min
[2025-02-01 08:59] LABS: Alanine Aminotransferase* 22 U/L (4-35); Alkaline Phosphatase* 69 U/L (40-150); Anion Gap 4 mEq/L (7-15); Aspartate Amino Transferase* 24 U/L (12-35); Bilirubin Total* 0.6 mg/dL (0.1-1.5); Calcium* 8.9 mg/dL (8.4-10.6); Carbon Dioxide* 29 mmol/L (20-32); Glucose* 90 mg/dL (60-115); Total Protein* 6.9 g/dL (6.0-8.3)
[2025-02-01] MEDS: FAMOTIDINE 20 MG, diphenhydrAMINE 50 MG in 0.9 % SODIUM CHLORIDE 100 ml 100 ML 309 MG IVPB (09:49)
[2025-02-01] MEDS: dexAMETHasone 20 MG in 0.9 % SODIUM CHLORIDE 100 ml 100 ML 408 MG IVPB (10:17)
[2025-02-01] MEDS: MICRON FILTER SET IV (10:46)
[2025-02-01] MEDS: PACLITAXEL IV (10:46)
[2025-02-01] MEDS: TUBING PRIMARY IV (10:46)
[2025-02-01] MEDS: [UNRECOGNIZED DRUG - OTHER] IV (10:46)
[2025-02-01] MEDS: IN LINE IV (10:46)
[2025-02-01] MEDS: CARBOPLATIN IVPB (11:55)
[2025-02-01] MEDS: TUBING SECONDARY IVPB (11:55)
[2025-02-01] MEDS: SODIUM CHLORIDE 0.9% IVPB (11:55)
[2025-02-01] MEDS: HEPARIN 500 UNIT/5 ML SYRINGE IVF (12:39)
[2025-02-01] MEDS: SODIUM CHLORIDE 0.9 % (FLUSH) 10 ML SYRINGE IVF (12:39)
[2025-02-08 08:22] VITALS: BP 133/80; PULSE 78; TEMP 36.1; O2SAT 99
[2025-02-08 08:43] LABS: Hematocrit* 31.8 % (33.0-51.0); Hemoglobin* 10.5 gm/dL (12.0-16.0); Immature Granulocytes Pct Auto 0.6 %; Mean Corpuscular HGB Conc 33 gm/dL (32-36); Mean Corpuscular Hemoglobin 29 pg (26-34); Mean Corpuscular Volume 89 fL (80-100); RDW Coefficient of Variation % 13.5 % (11.5-15.5); Red Blood Count* 3.58 m/uL (4.00-5.20); White Blood Count* 3.13 K/uL (4.50-11.00)
[2025-02-08 08:45] LABS: Immature Granulocytes Abs Auto 0.00 K/uL (0.00-0.30); Lymphocytes Absolute Auto 1.30 K/uL (0.90-2.90); Slide Review Reflex No
[2025-02-08 08:56] LABS: Albumin* 3.8 g/dL (3.3-5.0); Chloride* 100 mmol/L (96-114); Potassium* 4.4 mmol/L (3.6-5.1); Sodium* 133 mmol/L (135-149)
[2025-02-08 08:59] LABS: Alanine Aminotransferase* 25 U/L (4-35); Alkaline Phosphatase* 60 U/L (40-150); Anion Gap 5 mEq/L (7-15); Aspartate Amino Transferase* 23 U/L (12-35); Bilirubin Total* 0.5 mg/dL (0.1-1.5); Blood Urea Nitrogen* 13 mg/dL (7-30); Calcium* 8.6 mg/dL (8.4-10.6); Carbon Dioxide* 28 mmol/L (20-32); Creatinine* 0.8 mg/dL (0.5-1.5); Est. Creatinine Clearance* 46.43; Estimated Glomerular Filt Rate 79 ml/min; Glucose* 90 mg/dL (60-115); Total Protein* 6.7 g/dL (6.0-8.3)
[2025-02-08] MEDS: HEPARIN 500 UNIT/5 ML SYRINGE IVF (09:55)
[2025-02-08] MEDS: SODIUM CHLORIDE 0.9 % (FLUSH) 10 ML SYRINGE IVF (09:55)
[2025-02-08] MEDS: dexAMETHasone 20 MG in 0.9 % SODIUM CHLORIDE 100 ml 100 ML 408 MG IVPB (09:55)
[2025-02-08 09:56] LABS: Appearance Urine Clear (Clear)
[2025-02-08] MEDS: FAMOTIDINE 20 MG, diphenhydrAMINE 25 MG in 0.9 % SODIUM CHLORIDE 100 ml 100 ML 309 MG IVPB (10:13)
[2025-02-08] MEDS: MICRON FILTER SET IV (10:49)
[2025-02-08] MEDS: TUBING PRIMARY IV (10:49)
[2025-02-08] MEDS: PACLITAXEL IV (10:49)
[2025-02-08] MEDS: IN LINE IV (10:49)
[2025-02-08] MEDS: [UNRECOGNIZED DRUG - OTHER] IV (10:49)
[2025-02-08] MEDS: CARBOPLATIN IVPB (12:05)
[2025-02-08] MEDS: TUBING SECONDARY IVPB (12:05)
[2025-02-08] MEDS: SODIUM CHLORIDE 0.9% IVPB (12:05)
--- NOTE | 2025-02-14 15:09 | ONC.NURNOTE ---
Discussed plan of care with Dr. Stafford. Decision was made to delay treatment one week due to severe constipation and vomiting. Patient will return to clinic 02/22 for consideration of cycle 3 with NOELLE Crowley. Patient verbalizes understanding.
[2025-02-22 08:16] LABS: Hematocrit* 30.6 % (33.0-51.0); Hemoglobin* 10.1 gm/dL (12.0-16.0); Immature Granulocytes Pct Auto 0.6 %; Mean Corpuscular HGB Conc 33 gm/dL (32-36); Mean Corpuscular Hemoglobin 30 pg (26-34); Mean Corpuscular Volume 92 fL (80-100); RDW Coefficient of Variation % 15.3 % (11.5-15.5); Red Blood Count* 3.34 m/uL (4.00-5.20); White Blood Count* 3.60 K/uL (4.50-11.00)
[2025-02-22 08:31] LABS: Albumin* 3.8 g/dL (3.3-5.0); Chloride* 101 mmol/L (96-114); Potassium* 4.4 mmol/L (3.6-5.1); Sodium* 135 mmol/L (135-149)
[2025-02-22 08:32] LABS: Immature Granulocytes Abs Auto 0.00 K/uL (0.00-0.30); Lymphocytes Absolute Auto 1.00 K/uL (0.90-2.90); Slide Review Reflex No
[2025-02-22 08:34] LABS: Alanine Aminotransferase* 15 U/L (4-35); Alkaline Phosphatase* 73 U/L (40-150); Anion Gap 6 mEq/L (7-15); Aspartate Amino Transferase* 22 U/L (12-35); Bilirubin Total* 0.5 mg/dL (0.1-1.5); Blood Urea Nitrogen* 12 mg/dL (7-30); Calcium* 8.8 mg/dL (8.4-10.6); Carbon Dioxide* 28 mmol/L (20-32); Creatinine* 0.8 mg/dL (0.5-1.5); Est. Creatinine Clearance* 46.43; Estimated Glomerular Filt Rate 79 ml/min; Glucose* 95 mg/dL (60-115); Total Protein* 6.6 g/dL (6.0-8.3)
[2025-02-22] MEDS: PEMBROLIZUMAB 200 MG, TUBING PRIMARY 1 EACH, In-line 0.2 micron filter set 1 EACH in 0.... 216 MG IVPB (10:17)
[2025-02-22] MEDS: SODIUM CHLORIDE 0.9 % (FLUSH) 10 ML SYRINGE IVF ×2 (10:18→13:41)
[2025-02-22] MEDS: dexAMETHasone 20 MG in 0.9 % SODIUM CHLORIDE 100 ml 100 ML 408 MG IVPB (10:52)
[2025-02-22] MEDS: FAMOTIDINE 20 MG, diphenhydrAMINE 25 MG in 0.9 % SODIUM CHLORIDE 100 ml 100 ML 308 MG IVPB (11:16)
[2025-02-22] MEDS: PACLitaxeL 145 MG, TUBING PRIMARY 1 EACH, In-line 0.2 micron filter set 1 EACH in 0.9 %... 274.17 MG IV (11:40)
[2025-02-22] MEDS: CARBOPLATIN IVPB (13:01)
[2025-02-22] MEDS: TUBING SECONDARY IVPB (13:01)
[2025-02-22] MEDS: SODIUM CHLORIDE 0.9% IVPB (13:01)
[2025-02-22] MEDS: HEPARIN 500 UNIT/5 ML SYRINGE IVF (13:41)
[2025-02-23 15:40] LABS: Cortisol, Serum 12.2 ug/dL
[2025-03-01 09:19] VITALS: BP 127/65; PULSE 76; TEMP 36; O2SAT 94
[2025-03-01 09:58] LABS: Hematocrit* 30.0 % (33.0-51.0); Hemoglobin* 10.1 gm/dL (12.0-16.0); Immature Granulocytes Pct Auto 0.5 %; Mean Corpuscular HGB Conc 34 gm/dL (32-36); Mean Corpuscular Hemoglobin 31 pg (26-34); Mean Corpuscular Volume 91 fL (80-100); RDW Coefficient of Variation % 14.9 % (11.5-15.5); Red Blood Count* 3.30 m/uL (4.00-5.20); White Blood Count* 3.86 K/uL (4.50-11.00)
[2025-03-01 10:00] LABS: Immature Granulocytes Abs Auto 0.00 K/uL (0.00-0.30); Lymphocytes Absolute Auto 1.10 K/uL (0.90-2.90); Slide Review Reflex No
[2025-03-01 10:10] LABS: Albumin* 3.8 g/dL (3.3-5.0); Chloride* 102 mmol/L (96-114); Potassium* 4.3 mmol/L (3.6-5.1); Sodium* 134 mmol/L (135-149)
[2025-03-01 10:13] LABS: Alanine Aminotransferase* 24 U/L (4-35); Alkaline Phosphatase* 56 U/L (40-150); Anion Gap 4 mEq/L (7-15); Aspartate Amino Transferase* 26 U/L (12-35); Bilirubin Total* 0.5 mg/dL (0.1-1.5); Blood Urea Nitrogen* 16 mg/dL (7-30); Calcium* 8.8 mg/dL (8.4-10.6); Carbon Dioxide* 28 mmol/L (20-32); Creatinine* 0.8 mg/dL (0.5-1.5); Est. Creatinine Clearance* 46.43; Estimated Glomerular Filt Rate 79 ml/min; Glucose* 90 mg/dL (60-115); Total Protein* 6.6 g/dL (6.0-8.3)
[2025-03-01 11:27] LABS: Appearance Urine Cloudy (Clear)
[2025-03-01] MEDS: HEPARIN 500 UNIT/5 ML SYRINGE IVF (11:56)
[2025-03-01] MEDS: SODIUM CHLORIDE 0.9 % (FLUSH) 10 ML SYRINGE IVF (11:56)
[2025-03-02 14:12] LABS: Cortisol, Serum 9.8 ug/dL
[2025-03-08 08:26] VITALS: BP 130/76; PULSE 68; RESP 17; TEMP 36.3; O2SAT 98
[2025-03-08 08:34] LABS: Hematocrit* 30.8 % (33.0-51.0); Hemoglobin* 10.2 gm/dL (12.0-16.0); Immature Granulocytes Pct Auto 0.4 %; Mean Corpuscular HGB Conc 33 gm/dL (32-36); Mean Corpuscular Hemoglobin 31 pg (26-34); Mean Corpuscular Volume 93 fL (80-100); RDW Coefficient of Variation % 15.0 % (11.5-15.5); Red Blood Count* 3.33 m/uL (4.00-5.20); White Blood Count* 2.79 K/uL (4.50-11.00)
[2025-03-08 08:39] LABS: Immature Granulocytes Abs Auto 0.00 K/uL (0.00-0.30); Lymphocytes Absolute Auto 1.00 K/uL (0.90-2.90)
[2025-03-08 08:40] LABS: Slide Review Reflex No
[2025-03-08 08:47] LABS: Chloride* 103 mmol/L (96-114)
[2025-03-08 08:48] LABS: Albumin* 3.8 g/dL (3.3-5.0); Potassium* 3.9 mmol/L (3.6-5.1); Sodium* 135 mmol/L (135-149)
[2025-03-08 08:50] LABS: Alanine Aminotransferase* 18 U/L (4-35); Anion Gap 3 mEq/L (7-15); Aspartate Amino Transferase* 22 U/L (12-35); Blood Urea Nitrogen* 8 mg/dL (7-30); Carbon Dioxide* 29 mmol/L (20-32); Creatinine* 0.8 mg/dL (0.5-1.5); Est. Creatinine Clearance* 48.30; Estimated Glomerular Filt Rate 79 ml/min
[2025-03-08 08:51] LABS: Alkaline Phosphatase* 68 U/L (40-150); Bilirubin Total* 0.4 mg/dL (0.1-1.5); Calcium* 8.9 mg/dL (8.4-10.6); Glucose* 101 mg/dL (60-115); Total Protein* 6.5 g/dL (6.0-8.3)
[2025-03-08] MEDS: dexAMETHasone 20 MG in 0.9 % SODIUM CHLORIDE 100 ml 100 ML 408 MG IVPB (09:50)
[2025-03-08] MEDS: FAMOTIDINE 20 MG, diphenhydrAMINE 25 MG in 0.9 % SODIUM CHLORIDE 100 ml 100 ML 309 MG IVPB (10:09)
[2025-03-08] MEDS: TUBING PRIMARY IV (10:37)
[2025-03-08] MEDS: PACLITAXEL IV (10:37)
[2025-03-08] MEDS: IN LINE IV (10:37)
[2025-03-08] MEDS: [UNRECOGNIZED DRUG - OTHER] IV (10:37)
[2025-03-08] MEDS: MICRON FILTER SET IV (10:37)
[2025-03-08] MEDS: CARBOPLATIN IVPB (11:44)
[2025-03-08] MEDS: TUBING SECONDARY IVPB (11:44)
[2025-03-08] MEDS: SODIUM CHLORIDE 0.9% IVPB (11:44)
[2025-03-08] MEDS: SODIUM CHLORIDE 0.9 % (FLUSH) 10 ML SYRINGE IVF (12:20)
[2025-03-08] MEDS: HEPARIN 500 UNIT/5 ML SYRINGE IVF (12:20)
--- NOTE | 2025-03-13 16:02 | ONC.NURNOTE ---
Called pt to check in ahead of f/u appt 03/15 with Keytruda/Taxol/Carbo. She saw Della DRAKE on 03/01 and was previously scheduled for f/u this 03/15. She reports she had significant headaches days 1 and 2 after treatment, as well as low grade fevers. She reports this week being able to work ~2hrs yesterday and today, then going home to nap ~11a-3:30p, then sleeping at night ~7:30p-7:30a. Left provider appt on 03/15 as scheduled and updated Della Wright PA-C.
[2025-03-15] MEDS: SODIUM CHLORIDE 0.9 % (FLUSH) 10 ML SYRINGE IVF ×2 (07:50→13:02)
[2025-03-15 08:07] LABS: Hematocrit* 31.9 % (33.0-51.0); Hemoglobin* 10.5 gm/dL (12.0-16.0); Immature Granulocytes Pct Auto 1.0 %; Mean Corpuscular HGB Conc 33 gm/dL (32-36); Mean Corpuscular Hemoglobin 30 pg (26-34); Mean Corpuscular Volume 92 fL (80-100); RDW Coefficient of Variation % 14.4 % (11.5-15.5); Red Blood Count* 3.46 m/uL (4.00-5.20); White Blood Count* 4.17 K/uL (4.50-11.00)
[2025-03-15 08:09] LABS: Immature Granulocytes Abs Auto 0.00 K/uL (0.00-0.30); Lymphocytes Absolute Auto 1.70 K/uL (0.90-2.90); Slide Review Reflex No
[2025-03-15 08:16] LABS: Albumin* 3.9 g/dL (3.3-5.0); Chloride* 103 mmol/L (96-114); Sodium* 135 mmol/L (135-149)
[2025-03-15 08:17] LABS: Potassium* 4.3 mmol/L (3.6-5.1)
[2025-03-15 08:19] LABS: Alanine Aminotransferase* 22 U/L (4-35); Alkaline Phosphatase* 68 U/L (40-150); Anion Gap 5 mEq/L (7-15); Aspartate Amino Transferase* 26 U/L (12-35); Bilirubin Total* 0.4 mg/dL (0.1-1.5); Blood Urea Nitrogen* 13 mg/dL (7-30); Calcium* 9.0 mg/dL (8.4-10.6); Carbon Dioxide* 27 mmol/L (20-32); Creatinine* 0.8 mg/dL (0.5-1.5); Est. Creatinine Clearance* 48.30; Estimated Glomerular Filt Rate 79 ml/min; Glucose* 93 mg/dL (60-115); Total Protein* 6.9 g/dL (6.0-8.3)
[2025-03-15] MEDS: PEMBROLIZUMAB 200 MG, TUBING PRIMARY 1 EACH, In-line 0.2 micron filter set 1 EACH in 0.... 216 MG IVPB (09:46)
[2025-03-15] MEDS: dexAMETHasone 20 MG in 0.9 % SODIUM CHLORIDE 100 ml 100 ML 408 MG IVPB (10:24)
[2025-03-15] MEDS: FAMOTIDINE 20 MG, diphenhydrAMINE 25 MG in 0.9 % SODIUM CHLORIDE 100 ml 100 ML 309 MG IVPB (10:46)
[2025-03-15] MEDS: TUBING PRIMARY IV (11:20)
[2025-03-15] MEDS: [UNRECOGNIZED DRUG - OTHER] IV (11:20)
[2025-03-15] MEDS: IN LINE IV (11:20)
[2025-03-15] MEDS: MICRON FILTER SET IV (11:20)
[2025-03-15] MEDS: PACLITAXEL IV (11:20)
[2025-03-15] MEDS: SODIUM CHLORIDE 0.9% IVPB (12:26)
[2025-03-15] MEDS: TUBING SECONDARY IVPB (12:26)
[2025-03-15] MEDS: CARBOPLATIN IVPB (12:26)
[2025-03-15] MEDS: HEPARIN 500 UNIT/5 ML SYRINGE IVF (13:02)
[2025-03-22 08:31] VITALS: BP 144/82; PULSE 71; TEMP 36; O2SAT 94
[2025-03-22 08:47] LABS: Hematocrit* 29.6 % (33.0-51.0); Hemoglobin* 10.0 gm/dL (12.0-16.0); Immature Granulocytes Pct Auto 0.3 %; Mean Corpuscular HGB Conc 34 gm/dL (32-36); Mean Corpuscular Hemoglobin 31 pg (26-34); Mean Corpuscular Volume 91 fL (80-100); RDW Coefficient of Variation % 14.4 % (11.5-15.5); Red Blood Count* 3.25 m/uL (4.00-5.20); White Blood Count* 3.45 K/uL (4.50-11.00)
[2025-03-22 08:49] LABS: Immature Granulocytes Abs Auto 0.00 K/uL (0.00-0.30); Lymphocytes Absolute Auto 1.50 K/uL (0.90-2.90); Slide Review Reflex No
[2025-03-22 09:00] LABS: Albumin* 3.8 g/dL (3.3-5.0); Chloride* 100 mmol/L (96-114); Potassium* 3.7 mmol/L (3.6-5.1); Sodium* 130 mmol/L (135-149)
[2025-03-22 09:03] LABS: Alanine Aminotransferase* 25 U/L (4-35); Alkaline Phosphatase* 54 U/L (40-150); Anion Gap 6 mEq/L (7-15); Aspartate Amino Transferase* 27 U/L (12-35); Bilirubin Total* 0.6 mg/dL (0.1-1.5); Blood Urea Nitrogen* 9 mg/dL (7-30); Calcium* 9.1 mg/dL (8.4-10.6); Carbon Dioxide* 24 mmol/L (20-32); Creatinine* 0.7 mg/dL (0.5-1.5); Est. Creatinine Clearance* 48.30; Estimated Glomerular Filt Rate 92 ml/min; Glucose* 105 mg/dL (60-115); Total Protein* 6.7 g/dL (6.0-8.3)
[2025-03-22] MEDS: SODIUM CHLORIDE 0.9 % (FLUSH) 10 ML SYRINGE IVF ×2 (10:06→11:20)
[2025-03-23 10:18] LABS: Cortisol, Serum 13.5 ug/dL
--- NOTE | 2025-03-28 14:30 | ONC.NURNOTE ---
Left a message for patient re: No Show for Dr. Stafford appointment. Requested return call to assist with rescheduling.
--- NOTE | 2025-03-29 14:22 | ONC.NURNOTE ---
Call to patient for an update on her condition. Patient informed that we were aware of her recent hospitalization at [facility]. Patient is requesting to transfer her cancer care to the [facility]. All future follow up with our team has been canceled and her oncology team and surgeon have been notified. BCN will reach out to the nurse navigator at [facility] to assist with the transition of care.
== END 2025-06-17 23:59 | disposition home or self-care (01) ==
LOC: CCIC 10:15
PROVIDERS: Clinical Nurse Specialist; Internal Medicine Hematology & Oncology; PCP Internal Medicine; Referring Provider Internal Medicine; Visit Provider Physician Assistant
DX: C50.912 Malignant neoplasm of unspecified site of left female breast (principal); Z17.1 Estrogen receptor negative status [ER-]; Z79.899 Other long term (current) drug therapy; Z51.81 Encounter for therapeutic drug level monitoring
CPT/HCPCS: 36415; 36591; 71275; 80048; 80053; 80076; 81001; 81003; 82533; 82803; 83605; 83735; 84443; 85025; 86140; 87040; 87086; 87631; 93306; 94761; 96360; 96365; 96367; 96375; 96413; 96417; 99202; 99205; 99211; 99214; 99215; 99284; G0463; A9270; J1100; J1200; J1308; J1642; J2405; J2469; J2765; J7030; J7050; J7120; J9045; J9267; J9271; Q9967